=== PATIENT | female | born 1965 | race Hispanic/Latino ===

== ENCOUNTER → 2018-07-08 | Day surgery (SDC) | payer OTHER ==
[~2018-07-08] MED LIST: LIDOCAINE HCL 2% LOCAL INJ 5 ML SDV VIAL INJ ONE; LOSARTAN POTASS25 MG PO; LYRICA25 MG PO; METFORMIN HCL500 MG PO; MIDAZOLAM HCL 2 MG/2 ML VIAL ONE; PROPOFOL IV EMULSION 10 MG/ML 50 ML VIAL ONE
[2018-07-08 09:40] VITALS: BP 144/80
--- NOTE | 2018-07-08 12:43 | NUR ---
SPIRITUAL CARE - Pre-Surgery Assessment: Pt in bed. Pt's at bedside. Pt reported supportive attention from family and friends. Intervention: I provided pastoral presence, hospitality, sympathetic listening, and prayer. I acquainted pt with availability of ceramist while hospitalized. Outcome: Pt expressed appreciation for visit. No need for follow up indicated at this time. [facility] Spiritual [facility] Department O: [phone] Pager: [phone] ([phone] calling from)
--- NOTE | 2018-07-08 13:12 | Operative Report ---
DATE OF PROCEDURE: July 08, 2018 REFERRING PHYSICIAN: Dr. Juno Lombardi PROCEDURES PERFORMED 1. Esophagogastroduodenoscopy with biopsies. 2. Colonoscopy with polypectomy. INDICATIONS FOR EGD: Heartburn/bloating. INDICATIONS FOR COLONOSCOPY: Colorectal cancer screening. MEDICATION: Patient was done under MAC. Please see anesthesiologist's note. PROCEDURE: With the patient in the left lateral decubitus position, the flexible fiberoptic Olympus gastroscope was introduced into the esophagus under direct visualization without any difficulty. There was some minimal nodularity noted at the GE junction, and that was biopsied. The scope was then advanced with ease into the stomach traversing a small sliding hiatal hernia. Mucosa overlying the antrum and the body revealed some patchy erythema and low-grade to moderate edema, and biopsies were obtained and sent to stain for H. pylori. The pylorus was of normal contour and shape. It was intubated with ease, and the scope was advanced all the way to the 2nd portion of the duodenum. Biopsies were obtained from the proximal 2nd portion to rule out sprue as well as from the duodenal bulb. The scope was then withdrawn back into the stomach and retroflexed. Mucosa overlying the fundus and cardia appeared to be within normal limits. The scope was then straightened out. The stomach was decompressed. Scope was subsequently withdrawn. Patient tolerated the procedure well. IMPRESSION 1. Distal esophagitis. 2. Focal minimal nodularity, gastroesophageal junction, biopsied. 3. Small sliding hiatal hernia. 4. Gastritis, biopsied. Biopsies sent to stain for H. pylori. 5. Rule out sprue. PLAN: Follow up histology. Initiate Protonix 40 mg 1 p.o. q.a.m. a.c. The patient was then turned around. After adequate lubrication of the anal canal, a flexible fiberoptic Olympus colonoscope was inserted into the rectum with ease and advanced all the way to the cecum. It was then withdrawn slowly. Mucosa overlying the cecum and ascending colon appeared to be within normal limits. Four minute polyps were hot biopsied from the transverse colon. The descending appeared to be within normal limits. Some diverticular disease was noted to involve the sigmoid colon. The rectum appeared to be within normal limits. The scope was then retroflexed into the distal rectum, and small internal hemorrhoids were noted, none of which was actively bleeding. The scope was then straightened out. It was subsequently withdrawn. Patient tolerated the procedure well. IMPRESSION 1. Transverse colon polyps x4, hot biopsied. 2. Diverticulosis. 3. Internal hemorrhoids, none actively bleeding. PLAN: Follow up histology. Initiate high-fiber, low-fat diet. Initiate high-fiber supplement. Patient might benefit from a followup colonoscopy in 3 years. Job#: [id number] cc:JUNO LOMBARDI MD
== END | disposition home or self-care (01) ==
LOC: OR 06:02
PROVIDERS: ATTEND Internal Medicine Gastroenterology
DX: Z12.11 Encounter for screening for malignant neoplasm of colon (principal); D12.3 Benign neoplasm of transverse colon; K29.70 Gastritis, unspecified, without bleeding; K20.9 Esophagitis, unspecified; K22.8 Other specified diseases of esophagus; K44.9 Diaphragmatic hernia without obstruction or gangrene; K57.30 Diverticulosis of large intestine without perforation or abscess without bleeding; K64.8 Other hemorrhoids; I44.4 Left anterior fascicular block; E11.9 Type 2 diabetes mellitus without complications; Z79.84 Long term (current) use of oral hypoglycemic drugs; Z68.35 Body mass index [BMI] 35.0-35.9, adult
CPT/HCPCS: 36415; 43239; 45384; 82948; J2001; J2250; 45378

== ENCOUNTER 2019-02-06 15:23 | Emergency (ER) | payer OTHER ==
[~2019-02-06] VITALS: Ht 165.1 cm; Wt 95.3 kg
[~2019-02-06 15:23] MED LIST changes: -LIDOCAINE HCL 2% LOCAL INJ 5 ML SDV VIAL INJ ONE; -MIDAZOLAM HCL 2 MG/2 ML VIAL ONE; -PROPOFOL IV EMULSION 10 MG/ML 50 ML VIAL ONE
--- OUTSIDE RECORDS SUMMARY | 2019-02-06 15:26 | XMS REPORT | Summary of Care ---
Author Author [facility] Organization [facility] Address Unknown Phone Unavailable Encounter LATONIA Adames(SUZY) [id number] Date(s): 07/12/15 - 07/14/15 [facility] [address] [place] [address]- Discharge Disposition: Home Attending Physician: Chapincito Kovacs DO Admitting Physician: Chapincito Kovacs DO Vital Signs 1 2 3 Most recent to oldest [Reference Range]: 167.64 cm (07/12/15 7:43 PM) 165.1 cm (07/12/15 2:52 PM) 165.1 cm (07/12/15 8:06 AM) Height 98.4 DegF (07/14/15 7:49 AM) 97 DegF (07/14/15 4:00 AM) 98.7 DegF (07/14/15 12:47 AM) Temperature Oral [96.4-99.1 DegF] 103/65 mmHg (07/14/15 7:49 AM) 106/68 mmHg (07/14/15 4:00 AM) 116/71 mmHg (07/14/15 12:47 AM) Blood Pressure [90-140/60-90 mmHg] 16 BRMIN (07/14/15 7:49 AM) 16 BRMIN (07/14/15 4:00 AM) 16 BRMIN (07/14/15 12:47 AM) Respiratory Rate [14-20 BRMIN] 65 bpm (07/14/15 7:49 AM) 67 bpm (07/14/15 4:00 AM) 71 bpm (07/14/15 12:47 AM) Peripheral Pulse Rate [60-100 bpm] 93.438 kg (07/13/15 9:23 AM) 88.636 kg (07/12/15 7:43 PM) 88.636 kg (07/12/15 2:52 PM) Weight 31.54 m2 (07/12/15 7:43 PM) 32.52 m2 (07/12/15 2:52 PM) 32.52 m2 (07/12/15 8:06 AM) Body Mass Index Problem List Condition Effective Dates Status Health Status Informant High blood Active sugar(Confirmed) Hypomagnesemia(Confi Resolved rmed) Pneumonia(Confirmed) Resolved Allergies, Adverse Reactions, Alerts Substance Reaction Severity Status NKDA Active Medications acetaminophen (ANES) Route: IV, Drug form: INJ, ONCE, Stop date: 07/13/15 13:02:00 Start Date: 07/13/15 Stop Date: 07/13/15 Status: Completed acetaminophen-hydrocodone 325 mg-5 mg oral tablet 1 tab, Route: PO, Drug Form: TAB, Dosing Weight 93.438, kg, Q4H, PRN Pain Score 1-3, Start date: 07/13/15 13:25:00, Duration: 30 day, Stop date: 08/12/15 13:24: 00 Notes: (Same as: [place] 325/5) Do not exceed 4gm/day of acetaminophen. Start Date: 07/13/15 Stop Date: 07/14/15 Status: Discontinued cefOXitin (ANES) Route: IV, Drug form: INJ, ONCE, Stop date: 07/13/15 12:57:00 Start Date: 07/13/15 Stop Date: 07/13/15 Status: Completed cloNIDine 0.1 mg oral tablet 0.1 mg, 1 tab, Route: PO, Drug form: TAB, Q8H, Dosing Weight 88.636, kg, PRN Hyp ertension, Start date: 07/12/15 14:34:00, Duration: 30 day, Stop date: 08/11/15 14:33:00, SBP >160 Notes: (Same As: Catapres) Start Date: 07/12/15 Stop Date: 07/14/15 Status: Discontinued Dextrose 50% Syringe 25 gm, 50 mL, Route: IVP, Drug Form: INJ, Dosing Weight 88.636, kg, PRN, PRN Blo od Glucose Results, Start date: 07/12/15 14:35:00, Duration: 30 day, Stop date: 08/11/15 14:34:00 Start Date: 07/12/15 Stop Date: 07/14/15 Status: Discontinued Dextrose 50% Syringe 12.5 gm, 25 mL, Route: IVP, Drug Form: INJ, Dosing Weight 88.636, kg, PRN, PRN B lood Glucose Results, Start date: 07/12/15 14:35:00, Duration: 30 day, Stop date : 08/11/15 14:34:00 Start Date: 07/12/15 Stop Date: 07/14/15 Status: Discontinued Dilaudid 0.5 mg, 0.5 mL, Route: IVP, Drug form: INJ, ONCE, Dosing Weight 88.636, kg, Prio rity: STAT, Start date: 07/12/15 10:12:00, Stop date: 07/12/15 10:12:00 Start Date: 07/12/15 Stop Date: 07/12/15 Status: Completed docusate sodium 100 mg oral capsule 100 mg, 1 cap, Route: PO, Drug form: CAP, BID, Dosing Weight 93.438, kg, Start d ate: 07/13/15 17:00:00, Duration: 30 day, Stop date: 08/12/15 9:00:00 Notes: (Same as: Colace) (Do Not Crush) Start Date: 07/13/15 Stop Date: 07/14/15 Status: Discontinued enoxaparin 40 mg, 0.4 mL, Route: SUB-Q, Drug form: INJ, [id number], Dosing Weight 88.636, kg, Start date: 07/12/15 15:00:00, Duration: 30 day, Stop date: 08/10/15 15:00:00 Notes: (Same as: Lovenox) Start Date: 07/12/15 Stop Date: 07/14/15 Status: Discontinued fentaNYL 25 microgram, Route: IVP, ONCE, Dosing Weight 93.438, kg, Start date: 07/13/15 1 3:55:00, Stop date: 07/13/15 13:55:00 Start Date: 07/13/15 Stop Date: 07/13/15 Status: Completed fentaNYL 25 microgram, 0.5 mL, Route: IVP, Drug form: INJ, ONCE, Dosing Weight 93.438, kg , Start date: 07/13/15 13:40:00, Stop date: 07/13/15 13:40:00 Notes: (Same as: Sublimaze) Preservative free. Start Date: 07/13/15 Stop Date: 07/13/15 Status: Completed fentaNYL (ANES) Route: IV, Drug form: INJ, ONCE, Stop date: 07/13/15 12:57:00 Start Date: 07/13/15 Stop Date: 07/13/15 Status: Completed GI cocktail 30 mL, Route: PO, Dosing Weight 88.636, kg, ONCE, STAT, Start date: 07/12/15 9:3 4:00, Stop date: 07/12/15 9:34:00 Start Date: 07/12/15 Stop Date: 07/12/15 Status: Completed glipiZIDE 10 mg oral tablet 10 mg=1 tab, PO, Before Breakfast, # 30 tab, 0 Refill(s) Start Date: 07/12/15 Status: Ordered glucagon 1 mg, Route: IM, Drug form: PDR/INJ, PRN, Dosing Weight 88.636, kg, PRN Blood Gl ucose Results, Start date: 07/12/15 14:35:00, Duration: 30 day, Stop date: 08/10 14:34:00 Start Date: 07/12/15 Stop Date: 07/14/15 Status: Discontinued glycopyrrolate (ANES) Route: IV, Drug form: INJ, ONCE, Stop date: 07/13/15 13:14:00 Start Date: 07/13/15 Stop Date: 07/13/15 Status: Completed hydromorphone 1 mg, 1 mL, Route: IVP, Drug form: INJ, ONCE, Dosing Weight 88.636, kg, Priority : STAT, Start date: 07/12/15 8:23:00, Stop date: 07/12/15 8:23:00 Start Date: 07/12/15 Stop Date: 07/12/15 Status: Completed influenza virus vaccine, inactivated 0.5 mL, Route: IM, Daily, Start date: 07/13/15 9:00:00, Duration: 1 doses or meron es, Stop date: 07/13/15 9:00:00 Start Date: 07/13/15 Stop Date: 07/13/15 Status: Deleted insulin aspart 2 unit, 0.02 mL, Route: SUB-Q, Drug form: SOLN, Bedtime, Dosing Weight 88.636, k g, PRN Blood Glucose Results, Start date: 07/12/15 14:35:00, Duration: 30 day, S top date: 08/11/15 14:34:00 Notes: Roll in palms of hands gently; Do not shake vigorously. (Same as: Daysi Toney)"single patient use only"WASTE: F/P - Black; E - Municipal Trash Bin Stable f or 28 days at room temperature.Expires in days from Date Start Date: 07/12/15 Stop Date: 07/14/15 Status: Discontinued insulin aspart 3 unit, 0.03 mL, Route: SUB-Q, Drug form: SOLN, Bedtime, Dosing Weight 88.636, k g, PRN Blood Glucose Results, Start date: 07/12/15 14:35:00, Duration: 30 day, S top date: 08/11/15 14:34:00 Notes: Roll in palms of hands gently; Do not shake vigorously. (Same as: Daysi Toney)"single patient use only"WASTE: F/P - Black; E - Municipal Trash Bin Stable f or 28 days at room temperature.Expires in days from Date Start Date: 07/12/15 Stop Date: 07/14/15 Status: Discontinued insulin aspart 4 unit, 0.04 mL, Route: SUB-Q, Drug form: SOLN, Bedtime, Dosing Weight 88.636, k g, PRN Blood Glucose Results, Start date: 07/12/15 14:35:00, Duration: 30 day, S top date: 08/11/15 14:34:00 Notes: Roll in palms of hands gently; Do not shake vigorously. (Same as: Daysi Toney)"single patient use only"WASTE: F/P - Black; E - Municipal Trash Bin Stable f or 28 days at room temperature.Expires in days from Date Start Date: 07/12/15 Stop Date: 07/14/15 Status: Discontinued insulin aspart 1 unit, 0.01 mL, Route: SUB-Q, Drug form: SOLN, Bedtime, Dosing Weight 88.636, k g, PRN Blood Glucose Results, Start date: 07/12/15 14:35:00, Duration: 30 day, S top date: 08/11/15 14:34:00 Notes: Roll in palms of hands gently; Do not shake vigorously. (Same as: Daysi Toney)"single patient use only"WASTE: F/P - Black; E - Municipal Trash Bin Stable f or 28 days at room temperature.Expires in days from Date Start Date: 07/12/15 Stop Date: 07/14/15 Status: Discontinued insulin aspart 6 unit, 0.06 mL, Route: SUB-Q, Drug form: SOLN, TID-Before Meals, Dosing Weight 88.636, kg, PRN Blood Glucose Results, Start date: 07/12/15 14:35:00, Duration: 30 day, Stop date: 08/11/15 14:34:00 Notes: Roll in palms of hands gently; Do not shake vigorously. (Same as: Daysi Toney)"single patient use only"WASTE: F/P - Black; E - Municipal Trash Bin Stable f or 28 days at room temperature.Expires in days from Date Start Date: 07/12/15 Stop Date: 07/14/15 Status: Discontinued insulin aspart 4 unit, 0.04 mL, Route: SUB-Q, Drug form: SOLN, TID-Before Meals, Dosing Weight 88.636, kg, PRN Blood Glucose Results, Start date: 07/12/15 14:35:00, Duration: 30 day, Stop date: 08/11/15 14:34:00 Notes: Roll in palms of hands gently; Do not shake vigorously. (Same as: Daysi Toney)"single patient use only"WASTE: F/P - Black; E - Municipal Trash Bin Stable f or 28 days at room temperature.Expires in days from Date Start Date: 07/12/15 Stop Date: 07/14/15 Status: Discontinued insulin aspart 10 unit, 0.1 mL, Route: SUB-Q, Drug form: SOLN, TID-Before Meals, Dosing Weight 88.636, kg, PRN Blood Glucose Results, Start date: 07/12/15 14:35:00, Duration: 30 day, Stop date: 08/11/15 14:34:00 Notes: Roll in palms of hands gently; Do not shake vigorously. (Same as: Daysi Toney)"single patient use only"WASTE: F/P - Black; E - Municipal Trash Bin Stable f or 28 days at room temperature.Expires in days from Date Start Date: 07/12/15 Stop Date: 07/14/15 Status: Discontinued insulin aspart 8 unit, 0.08 mL, Route: SUB-Q, Drug form: SOLN, TID-Before Meals, Dosing Weight 88.636, kg, PRN Blood Glucose Results, Start date: 07/12/15 14:35:00, Duration: 30 day, Stop date: 08/11/15 14:34:00 Notes: Roll in palms of hands gently; Do not shake vigorously. (Same as: Daysi Toney)"single patient use only"WASTE: F/P - Black; E - Municipal Trash Bin Stable f or 28 days at room temperature.Expires in days from Date Start Date: 07/12/15 Stop Date: 07/14/15 Status: Discontinued insulin aspart 2 unit, 0.02 mL, Route: SUB-Q, Drug form: SOLN, TID-Before Meals, Dosing Weight 88.636, kg, PRN Blood Glucose Results, Start date: 07/12/15 14:35:00, Duration: 30 day, Stop date: 08/11/15 14:34:00 Notes: Roll in palms of hands gently; Do not shake vigorously. (Same as: Daysi Toney)"single patient use only"WASTE: F/P - Black; E - Municipal Trash Bin Stable f or 28 days at room temperature.Expires in days from Date Start Date: 07/12/15 Stop Date: 07/14/15 Status: Discontinued Insulin regular 2 unit, 0.02 mL, Route: IV, Drug form: INJ, ONCE, Dosing Weight 93.438, kg, Star t date: 07/13/15 10:59:00, Stop date: 07/13/15 10:59:00 Notes: (Same as: Humulin R and NovoLIN R)WASTE: F/P - Black; E - Municipal Trash Bin (Do not shake) Start Date: 07/13/15 Stop Date: 07/13/15 Status: Completed Insulin regular 3 unit, Route: SUB-Q, ONCE, Dosing Weight 93.438, kg, Start date: 07/13/15 13:50 :00, Stop date: 07/13/15 13:50:00 Start Date: 07/13/15 Stop Date: 07/13/15 Status: Discontinued Insulin regular 3 unit, Route: IV, ONCE, Dosing Weight 93.438, kg, Start date: 07/13/15 13:51:00 , Stop date: 07/13/15 13:51:00 Start Date: 07/13/15 Stop Date: 07/13/15 Status: Completed Insulin regular 10 unit, Route: IVP, ONCE, Dosing Weight 88.636, kg, Priority: STAT, Start date: 07/12/15 11:44:00, Stop date: 07/12/15 11:44:00 Start Date: 07/12/15 Stop Date: 07/12/15 Status: Completed Lactated Ringers IV 1,000 mL 1,000 mL, Rate: 125 ml/hr, Infuse over: 8 hr, Route: IV, Dosing Weight 88.636 kg , Total Volume: 1,000, Start date: 07/12/15 14:55:00, Duration: 30 day, Stop maira e: 08/11/15 14:54:00 Start Date: 07/12/15 Stop Date: 07/13/15 Status: Discontinued Lactated Ringers IV 1,000 mL 1,000 mL, Rate: 40 ml/hr, Infuse over: 25 hr, Route: IV, Dosing Weight 93.438 kg , Total Volume: 1,000, Start date: 07/13/15 12:47:00, Duration: 1 day, Stop date : 07/14/15 12:46:00 Start Date: 07/13/15 Stop Date: 07/14/15 Status: Discontinued lidocaine (ANES) Route: IV, Drug form: INJ, ONCE, Stop date: 07/13/15 12:57:00 Start Date: 07/13/15 Stop Date: 07/13/15 Status: Completed midazolam (ANES) Route: IV, Drug form: SOLN, ONCE, Stop date: 07/13/15 12:52:00 Start Date: 07/13/15 Stop Date: 07/13/15 Status: Completed morphine Sulfate 2 mg, 1 mL, Route: IVP, Drug form: INJ, Q2H, Dosing Weight 88.636, kg, PRN Pain Score 6-10, Priority: Routine, Start date: 07/12/15 20:08:00, Duration: 30 day, Stop date: 08/11/15 20:07:00 Notes: (Same as:MORPhine Sulfate) Start Date: 07/12/15 Stop Date: 07/13/15 Status: Discontinued morphine Sulfate 2 mg, 1 mL, Route: IVP, Drug form: INJ, Q3H, Dosing Weight 93.438, kg, PRN Pain Score 4-6, Start date: 07/13/15 13:25:00, Duration: 30 day, Stop date: 08/12/15 13:24:00 Notes: (Same as:MORPhine Sulfate) Start Date: 07/13/15 Stop Date: 07/14/15 Status: Discontinued morphine Sulfate 2 mg, Route: IVP, Q4H, Dosing Weight 88.636, kg, PRN Pain Score 7-10, Start date : 07/12/15 14:55:00, Duration: 30 day, Stop date: 08/11/15 14:54:00 Start Date: 07/12/15 Stop Date: 07/12/15 Status: Deleted morphine Sulfate 2 mg, 1 mL, Route: IVP, Drug form: INJ, Q4H, Dosing Weight 88.636, kg, PRN as ne eded for chest pain, Priority: Routine, Start date: 07/12/15 14:53:00, Duration: 30 day, Stop date: 08/11/15 14:52:00 Notes: (Same as:MORPhine Sulfate) Start Date: 07/12/15 Stop Date: 07/12/15 Status: Discontinued neostigmine (ANES) Route: IV, Drug form: INJ, ONCE, Stop date: 07/13/15 13:14:00 Start Date: 07/13/15 Stop Date: 07/13/15 Status: Completed NS 1,000 mL 1,000 mL, Rate: 100 ml/hr, Infuse over: 10 hr, Route: IV, Dosing Weight 88.636 k g, Total Volume: 1,000, Start date: 07/12/15 14:34:00, Duration: 30 day, Stop da te: 08/11/15 14:33:00 Start Date: 07/12/15 Stop Date: 07/13/15 Status: Discontinued Ofirmev 1,000 mg, 100 mL, Route: IV, Drug form: INJ, Q6H, Dosing Weight 93.438, kg, for > or=50 kg, Start date: 07/13/15 18:00:00, Duration: 1 day, Stop date: 07/14/15 12:00:00 Notes: Infuse over 15 minutesDo not exceed 4gm/day of acetaminophen MEDICAT ION WASTE Product Size: 1000 mgProduct Wasted: ___ mg Start Date: 07/13/15 Stop Date: 07/14/15 Status: Discontinued ondansetron 4 mg, 2 mL, Route: IVP, Drug form: INJ, Q6H, Dosing Weight 93.438, kg, PRN Nause a & Vomiting, Start date: 07/13/15 13:25:00, Duration: 30 day, Stop date: 08/12/15 13:24:00 Notes: (Same as: Zofran) MEDICATION WASTE Product Size: 4 mgProduct Was dedrick: ___ mg Start Date: 07/13/15 Stop Date: 07/14/15 Status: Discontinued ondansetron 4 mg, 2 mL, Route: IVP, Drug form: INJ, Q6H, Dosing Weight 88.636, kg, PRN Nause a & Vomiting, Start date: 07/12/15 14:55:00, Duration: 30 day, Stop date: 08/11/15 14:54:00 Notes: (Same as: Zofran) MEDICATION WASTE Product Size: 4 mgProduct Was dedrick: ___ mg Start Date: 07/12/15 Stop Date: 07/13/15 Status: Discontinued ondansetron 4 mg, 2 mL, Route: IVP, Drug form: INJ, ONCE, Dosing Weight 88.636, kg, Priority : STAT, Start date: 07/12/15 8:23:00, Stop date: 07/12/15 8:23:00 Notes: (Same as: Zofran) MEDICATION WASTE Product Size: 4 mgProduct Was dedrick: ___ mg Start Date: 07/12/15 Stop Date: 07/12/15 Status: Completed ondansetron (ANES) Route: IV, Drug form: INJ, ONCE, Stop date: 07/13/15 13:02:00 Start Date: 07/13/15 Stop Date: 07/13/15 Status: Completed pneumococcal 23-valent vaccine 0.5 mL, Route: IM, Drug Form: INJ, Daily, Start date: 07/13/15 9:00:00, Duration : 1 doses or times, Stop date: 07/13/15 9:00:00 Notes: (Same as: Pneumovax 23) Refrigerate Start Date: 07/13/15 Stop Date: 07/13/15 Status: Completed propofol (ANES) Route: IV, Drug form: INJ, ONCE, Stop date: 07/13/15 12:57:00 Start Date: 07/13/15 Stop Date: 07/13/15 Status: Completed Reglan 5 mg oral tablet 5 mg, 1 tab, Route: PO, Drug form: TAB, QID-Before Meals, Dosing Weight 88.636, kg, Start date: 07/12/15 16:30:00, Duration: 30 day, Stop date: 08/11/15 11:30:0 0 Notes: (Same as: Reglan) Take 30 min before meals Start Date: 07/12/15 Stop Date: 07/14/15 Status: Discontinued rocuronium (ANES) Route: IV, Drug form: INJ, ONCE, Stop date: 07/13/15 12:57:00 Start Date: 07/13/15 Stop Date: 07/13/15 Status: Completed Saline Flush 0.9% 10 ml, Route: IVP, Drug Form: INJ, Dosing Weight 93.438, kg, PRN, PRN Line Flush , Start date: 07/13/15 13:25:00, Duration: 30 day, Stop date: 08/12/15 13:24:00 Notes: (Same as: BD Posiflush) Start Date: 07/13/15 Stop Date: 07/14/15 Status: Discontinued Saline Flush 0.9% 10 ml, Route: IVP, Drug Form: INJ, Dosing Weight 88.636, kg, PRN, PRN Line Flush , Start date: 07/12/15 14:55:00, Duration: 30 day, Stop date: 08/11/15 14:54:00 Notes: (Same as: BD Posiflush) Start Date: 07/12/15 Stop Date: 07/14/15 Status: Discontinued Saline Flush 0.9% 10 mL, Route: IVP, Drug Form: INJ, Dosing Weight 88.636, kg, PRN, PRN Line Flush , Start date: 07/12/15 8:23:00, Duration: 30 day, Stop date: 08/11/15 8:22:00 Notes: (Same as: BD Posiflush) Start Date: 07/12/15 Stop Date: 07/13/15 Status: Discontinued Sodium Chloride 0.9% (Bolus) IV 1,000 mL, 1000 ml/hr, Infuse Over: 1 hr, Route: IV, 1,000, Drug form: INJ, ONCE, Priority: STAT, Dosing Weight 88.636 kg, Start date: 07/12/15 8:23:00, Duration: 1 doses or times, Stop date: 07/12/15 8:23:00 Start Date: 07/12/15 Stop Date: 07/12/15 Status: Completed Sodium Chloride 0.9% IV 1,000 mL 1,000 mL, Rate: 125 ml/hr, Infuse over: 8 hr, Route: IV, Dosing Weight 93.438 kg , Total Volume: 1,000, Start date: 07/13/15 13:25:00, Duration: 30 day, Stop maira e: 08/12/15 13:24:00 Start Date: 07/13/15 Stop Date: 07/14/15 Status: Discontinued Tylenol with Codeine #3 oral tablet 1 tab, PO, Q6H, PRN Pain, X 3 day, # 12 tab, 0 Refill(s) Start Date: 07/14/15 Stop Date: 07/17/15 Status: Ordered Zofran 4 mg, 2 mL, Route: IVP, Drug form: INJ, Q8H, Dosing Weight 88.636, kg, PRN as ne eded for nausea/vomiting, Priority: STAT, Start date: 07/12/15 14:34:00, Duratio n: 30 day, Stop date: 08/11/15 14:33:00 Notes: (Same as: Zofran) MEDICATION WASTE Product Size: 4 mgProduct Was dedrick: ___ mg Start Date: 07/12/15 Stop Date: 07/13/15 Status: Discontinued Zofran 4 mg, 2 mL, Route: IV, Drug form: INJ, ONCE, Dosing Weight 93.438, kg, Start maira e: 07/13/15 13:40:00, Stop date: 07/13/15 13:40:00 Notes: (Same as: Zofran) MEDICATION WASTE Product Size: 4 mgProduct Was dedrick: ___ mg Start Date: 07/13/15 Stop Date: 07/13/15 Status: Completed Results ELECTROLYTES Most recent to 1 2 oldest [Reference Range]: Sodium Lvl [135-145 135 mEq/L 130 mEq/L mEq/L] (07/13/15 7:55 AM) *LOW* (07/12/15 8:39 AM) Potassium Lvl 3.6 mEq/L 4.2 mEq/L [3.5-5.1 mEq/L] (07/13/15 7:55 AM) (07/12/15 8:39 AM) Chloride Lvl [95-109 103 mEq/L 97 mEq/L mEq/L] (07/13/15 7:55 AM) (07/12/15 8:39 AM) CO2 [24-32 mEq/L] 24 mEq/L 18 mEq/L (07/13/15 7:55 AM) *LOW* (07/12/15 8:39 AM) AGAP [10.0-20.0 11.6 mEq/L 19.2 mEq/L mEq/L] (07/13/15 7:55 AM) (07/12/15 8:39 AM) CHEM PANEL Most recent to 1 2 oldest [Reference Range]: Creatinine Lvl 0.53 mg/dL 0.90 mg/dL [0.50-1.40 mg/dL] (07/13/15 7:55 AM) (07/12/15 8:39 AM) eGFR 112 mL/min/1.73m2 1 76 mL/min/1.73m2 2 *NA* *NA* (07/13/15 7:55 AM) (07/12/15 8:39 AM) BUN [7-22 mg/dL] 9 mg/dL 12 mg/dL (07/13/15 7:55 AM) (07/12/15 8:39 AM) B/C Ratio [6-25] 13 (07/12/15 8:39 AM) Glucose Lvl [70-99 261 mg/dL 371 mg/dL mg/dL] *HI* *HI* (07/13/15 7:55 AM) (07/12/15 8:39 AM) Total Protein 8.1 g/dL [6.4-8.4 g/dL] (07/12/15 8:39 AM) Albumin Lvl [3.5-5.0 3.6 g/dL g/dL] (07/12/15 8:39 AM) Globulin [2.0-4.0 4.5 g/dL g/dL] *HI* (07/12/15 8:39 AM) A/G Ratio [0.7-1.6] 0.8 (07/12/15 8:39 AM) Calcium Lvl 8.4 mg/dL 9.1 mg/dL [8.5-10.5 mg/dL] *LOW* (07/12/15 8:39 AM) (07/13/15 7:55 AM) ALT [0-65 unit/L] 28 unit/L (07/12/15 8:39 AM) AST [0-37 unit/L] 54 unit/L *HI* (07/12/15 8:39 AM) Alk Phos [39-136 142 unit/L unit/L] *HI* (07/12/15 8:39 AM) Bili Total [0.2-1.3 1.0 mg/dL mg/dL] (07/12/15 8:39 AM) Lipase Lvl [73-393 120 unit/L unit/L] (07/12/15 8:39 AM) 1Result Comment: The eGFR is calculated using the CKD-EPI formula. In most young, healthy individuals the eGFR will be >90 mL/min/1.73m2. The eGFR declines with age. An eGFR of 60-89 may be normal in some populations, particularly the elderly, for whom the CKD-EPI formula has not been extensively validated. Use of the eGFR is not recommended in the following populations: Individuals with unstable creatinine concentrations, including patients and those with serious co-morbid conditions. Patients with extremes in muscle mass or diet. The data above are obtained from the National Kidney Disease Education Program ( NKDEP) which additionally recommends that when the eGFR is used in patients with extremes of body mass index for purposes of drug dosing, the eGFR should be mul tiplied by the estimated BMI. 2Result Comment: The eGFR is calculated using the CKD-EPI formula. In most young, healthy individuals the eGFR will be >90 mL/min/1.73m2. The eGFR declines with age. An eGFR of 60-89 may be normal in some populations, particularly the elderly, for whom the CKD-EPI formula has not been extensively validated. Use of the eGFR is not recommended in the following populations: Individuals with unstable creatinine concentrations, including patients and those with serious co-morbid conditions. Patients with extremes in muscle mass or diet. The data above are obtained from the National Kidney Disease Education Program ( NKDEP) which additionally recommends that when the eGFR is used in patients with extremes of body mass index for purposes of drug dosing, the eGFR should be mul tiplied by the estimated BMI. CARDIAC ENZYMES Most recent to 1 2 oldest [Reference Range]: Troponin-I <0.02 ng/mL [0.00-0.40 ng/mL] (07/12/15 8:39 AM) SPECIAL CHEMISTRY Most recent to 1 2 oldest [Reference Range]: Hgb A1C [<=5.6 %] 10.5 % *HI* (07/13/15 7:55 AM) DRUG SCREEN Most recent to 1 2 oldest [Reference Range]: U Amph Scr Negative [Negative] *NA* (07/12/15 8:39 AM) U Miracle Scr Negative [Negative] *NA* (07/12/15 8:39 AM) U Benzodia Scr Negative [Negative] *NA* (07/12/15 8:39 AM) U Cocaine Scr Positive [Negative] *ABN* (07/12/15 8:39 AM) U Opiate Scr Positive [Negative] *ABN* (07/12/15 8:39 AM) U Phencyc Scr Negative [Negative] *NA* (07/12/15 8:39 AM) U Cannab Scr Negative [Negative] *NA* (07/12/15 8:39 AM) UDS Note See Note (07/12/15 8:39 AM) URINE AND STOOL Most recent to 1 2 oldest [Reference Range]: UA Turbidity [Clear] Clear (07/12/15 8:39 AM) UA Color Ltyellow *NA* (07/12/15 8:39 AM) UA pH [5.0-8.0] 6.0 (07/12/15 8:39 AM) UA Spec Grav 1.030 [<=1.030] (07/12/15 8:39 AM) UA Glucose [Negative 500 mg/dL mg/dL] *ABN* (07/12/15 8:39 AM) UA Blood [Negative] Small *ABN* (07/12/15 8:39 AM) UA Ketones [Negative 80 mg/dL mg/dL] *ABN* (07/12/15 8:39 AM) UA Protein [Negative Negative mg/dL mg/dL] (07/12/15 8:39 AM) UA Urobilinogen <=1.0 mg/dL [0.1-1.0 mg/dL] *NA* (07/12/15 8:39 AM) UA Bili [Negative] Negative *NA* (07/12/15 8:39 AM) UA Leuk Est Small [Negative] *ABN* (07/12/15 8:39 AM) UA Nitrite Negative [Negative] (07/12/15 8:39 AM) UA WBC [0-5 /HPF] 45 /HPF *HI* (07/12/15 8:39 AM) UA RBC [0-2 /HPF] 2 /HPF (07/12/15 8:39 AM) UA Bacteria [None Occasional /HPF Seen /HPF] *NA* (07/12/15 8:39 AM) UA Sq Epi [Few /LPF] Few /LPF *NA* (07/12/15 8:39 AM) HEMATOLOGY Most recent to 1 2 oldest [Reference Range]: WBC [3.7-10.4 K/CMM] 7.7 K/CMM 11.7 K/CMM (07/13/15 7:55 AM) *HI* (07/12/15 8:39 AM) RBC [4.20-5.40 4.28 M/CMM 5.25 M/CMM M/CMM] (07/13/15 7:55 AM) (07/12/15 8:39 AM) Hgb [12.0-16.0 g/dL] 13.0 g/dL 15.9 g/dL (07/13/15 7:55 AM) (07/12/15 8:39 AM) Hct [36.0-48.0 %] 39.6 % 48.5 % (07/13/15 7:55 AM) *HI* (07/12/15 8:39 AM) MCV [80.0-98.0 fL] 92.6 fL 92.5 fL (07/13/15 7:55 AM) (07/12/15 8:39 AM) MCH [27.0-31.0 pg] 30.3 pg 30.4 pg (07/13/15 7:55 AM) (07/12/15 8:39 AM) MCHC [32.0-36.0 32.7 g/dL 32.9 g/dL g/dL] (07/13/15 7:55 AM) (07/12/15 8:39 AM) RDW [11.5-14.5 %] 12.8 % 12.8 % (07/13/15 7:55 AM) (07/12/15 8:39 AM) Platelet [133-450 173 K/CMM 221 K/CMM K/CMM] (07/13/15 7:55 AM) (07/12/15 8:39 AM) MPV [7.4-10.4 fL] 10.2 fL 10.6 fL (07/13/15 7:55 AM) *HI* (07/12/15 8:39 AM) Segs [45.0-75.0 %] 60.7 % 74.3 % (07/13/15 7:55 AM) (07/12/15 8:39 AM) Lymphocytes 31.4 % 20.0 % [20.0-40.0 %] (07/13/15 7:55 AM) (07/12/15 8:39 AM) Monocytes [2.0-12.0 6.6 % 4.5 % %] (07/13/15 7:55 AM) (07/12/15 8:39 AM) Eosinophils [0.0-4.0 0.8 % 0.4 % %] (07/13/15 7:55 AM) (07/12/15 8:39 AM) Basophils [0.0-1.0 0.5 % 0.8 % %] (07/13/15 7:55 AM) (07/12/15 8:39 AM) Segs-Bands # 4.7 K/CMM 8.7 K/CMM [1.5-8.1 K/CMM] (07/13/15 7:55 AM) *HI* (07/12/15 8:39 AM) Lymphocytes # 2.4 K/CMM 2.3 K/CMM [1.0-5.5 K/CMM] (07/13/15 7:55 AM) (07/12/15 8:39 AM) Monocytes # [0.0-0.8 0.5 K/CMM 0.5 K/CMM K/CMM] (07/13/15 7:55 AM) (07/12/15 8:39 AM) Eosinophils # 0.1 K/CMM [0.0-0.5 K/CMM] (07/13/15 7:55 AM) Basophils # [0.0-0.2 0.1 K/CMM K/CMM] (07/12/15 8:39 AM) PTT [22.9-35.8 31.2 seconds seconds] (07/13/15 8:11 AM) Immunizations Vaccine Date Refusal Reason influenza virus vaccine, inactivated 07/13/15 Patient Refuses influenza virus vaccine, inactivated 05/14/15 pneumococcal 23-valent vaccine 07/13/15 Procedures Procedure Date Related Diagnosis Body Site Laminectomy Partial hysterectomy Social History Social History Type Response Alcohol Current, Type Wine. Frequency: 1-2 times per month. Previous treatment: None. Smoking Status Never smoker; Exposure to Tobacco Smoke None; Cigarette Smoking Last 365 Days No; Reg Smoking Cessation Counseling No Assessment and Plan Extracted from: Title: Clinical Document Author: Ilya Rivera MD Date: 07/14/15 Surgery Progress Note Attending: [place]ito Kovacs DOPhone: Service: Emergency Medicine Service Code status: Full Code [Ordered] Reason for Admission: AC INTRACTABLE EPIGASTRIC AND RUQ PAIN, CHOLELITHIASIS Working DRG: None Documented Isolation: None Documented Consulting Physicians: Ilya Rivera MDOffice: MSO: [id number]: General Surgery Chapincito Kovacs DOOffice: MSO: [id number]: Medicine SUBJECTIVE: Doing well. Minimal pain described as soreness around the umbilicus. No fevers or chills. Tolerating a diet. OBJECTIVE & EXAM: General: AAOx3 HEENT: AT, NC, PERRLA, no scleral icterus CARDIAC: rrr PULM: CTA B, equal excursion B ABD: soft ND, mild TTP umbilicus, no R/G, no organomegaly EXT: no E/C/C, 2+ pulses in all 4 ext NEURO: grossly intact, CN 2-12 intact ASSESSMENT: A 50-year-old lady with: 1. Cholecystitis with gallstones. 2. Intractable right upper quadrant epigastric abdominal pain. 3. Nausea and vomiting. 4. Obesity, BMI 33. 5. Diabetes. 6. Questionable mild urinary tract infection. PLAN: 1. Diet as tolerated. 2. Ambulate, DVT prophylaxis. 3. OK for DC planning, FU one week. 4. Plan discussed with patient and she understands. Vitals and Temp: VitalsTmp(F)[id number] 07/14 07:[id number]--- 07/14 [id number]--- 07/14 00:[id number]--- 07/13 20:[id number]--- 07/13 18:[id number]--- 24 Hr Tmax: 98.8F (37.11c) at 07/13 11:01Vital Signs are the last 5 in the past 48 hours. Labs (Last four charted values) WBC 7.7(JUL 13)H 11.7(JUL 12) Hgb 13.0(JUL 13)15.9(JUL 12) Hct 39.6(JUL 13)H 48.5(JUL 12) Plt 173(JUL 13)221(JUL 12) Na 135(JUL 13)L 130(JUL 12) K 3.6(JUL 13)4.2(JUL 12) CO2 24(JUL 13)L 18(JUL 12) Cl 103(JUL 13)97(JUL 12) Cr 0.53(JUL 13)0.90(JUL 12) BUN 9(JUL 13)12(JUL 12) Glucose Random H 261(JUL 13)H 371(JUL 12) Ca L 8.4(JUL 13)9.1(JUL 12) PTT 31.2(JUL 13) Troponin <0.02(JUL 12) Scheduled Meds (4): 07/13/15 acetaminophen (Ofirmev) 1,000 mg IV Q6H 400 ml/hr 07/13/15 docusate (docusate sodium 100 mg oral capsule) 100 mg PO BID 07/12/15 enoxaparin 40 mg SUB-Q [id number] 07/12/15 metoclopramide (Reglan 5 mg oral tablet) 5 mg PO QID-Before Meals Extracted from: Title: Clinical Document Author: Ilya Rivera MD Date: 07/13/15 DATE OF PROCEDURE: 07/13/2015. PREOPERATIVE DIAGNOSIS: 1. Symptomatic gallstones. 2. Intractable right upper quadrant epigastric abdominal pain. 3. Nausea and vomiting. 4. Obesity, BMI 33. 5. Diabetes. 6. Questionable mild urinary tract infection. POSTOPERATIVE DIAGNOSIS: 1. Acute cholecystitis with gallstones. 2. Intractable right upper quadrant epigastric abdominal pain. 3. Nausea and vomiting. 4. Obesity, BMI 33. 5. Diabetes. 6. Questionable mild urinary tract infection. TECHNICAL PROCEDURE PERFORMED: Laparoscopic cholecystectomy. SURGEON: Ilya Rivera M.D. ANESTHESIA: General endotracheal. SURGICAL WOUND CLASSIFICATION: Clean contaminate. OPERATIVE TIME: 35 minutes. ESTIMATED BLOOD LOSS: Minimal. FLUID REPLACEMENT: Per anesthesia. SPECIMENS SENT FOR PATHOLOGY: Gallbladder. COMPLICATIONS: None. FINDINGS: 1. Inflamed gallbladder. 2. Well visualized critical view. 3. Gallstones. CONDITION: To recovery, stable. POSTOPERATIVE PLAN: To the floor INDICATIONS: A 50-year-old lady that presented to [facility] with abdominal pain. At this time, the history and physical as well as laboratory studies was consistent with diagnosis of the colic. Therefore, the option of laparoscopic versus open cholecystectomy was offered to the patient. Risks and benefits of the procedure were explained and the patient voiced understanding and consented to procedure. OPERATIVE NARRATIVE: Patient was taken the operating room, placed on the operating table, intubated by anesthesia. The abdomen was prepped and draped in the usual sterile fashion. A timeout was called and the correct patient, as well as procedure was verified. The patient had SCDs on for thromboembolic prophylaxis and received antibiotics within 1 hour of the incision. Umbilical region was identified, 0.5% Marcaine was infused followed 1-cm incision followed by dissection of the fascia. The fascia was grasped with a Aminta clamp and a Veress was place, confirmed with a positive saline drop test. Pneumoperitoneum was achieved with CO2 gas up to 15 mmHg. A 1-cm trocar was placed in the umbilical incision. The patient was placed in reverse Trendelenburg position airplaned to the left; 0.5 cm trocars were introduced in the epigastrium, right upper quadrant right periumbilical regions under direct visualization. The gallbladder was identified. It was grasped at the fundus and retracted to the head, infundibulum was identified, grasped and retracted towards the legs, exposing the triangle of Calot. The cystic duct was identified, it was dissected out from all surrounding structures, clipped proximally 3 times, distally once, transected in between. Of note, a well visualized critical view was identified; therefore we bypassed cholangiogram. The dissection continued to identify the cystic artery, it was dissected out from all surrounding structures, clipped proximally twice, distally once, and transected in between. The gallbladder was then elevated off the liver bed using electrocautery. It was placed in the Endopouch bag and removed from the abdomen through the umbilical port. The liver bed was inspected, all residual bleeding was identified and controlled. The abdomen was irrigated with copious amounts water until clear return was achieved. The patient was placed flat and all residual irrigation was suctioned out. The pneumoperitoneum was decom pressed and the fascia at the umbilical port was closed using 0 Vicryl in a [id number] manner, and the skin was closed using 4-0 Monocryl in running subcuticular manner. The skin and three 5-mm ports were closed using 4-0 Monocryl in simple U-stitch manner. The patient was extubated in the operating room and transferred to recovery in stable condition. All instrument and laparotomy counts were correct.
--- OUTSIDE RECORDS SUMMARY | 2019-02-06 15:26 | XMS REPORT | Summary of Care ---
Author Author [facility] Organization [facility] Address Unknown Phone Unavailable Encounter LATONIA Adames(SUZY) [id number] Date(s): 05/13/15 - 05/15/15 [facility] [id number] [place] [address]- [phone] Discharge Disposition: Home Attending Physician: Yessenia Carvajal MD Admitting Physician: Yessenia Carvajal MD Vital Signs 1 2 3 Most recent to oldest [Reference Range]: 167.64 cm (05/14/15 6:29 AM) 165.1 cm (05/13/15 9:18 PM) Height 98.8 DegF (05/15/15 4:00 AM) 98.3 DegF (05/15/15 12:00 AM) 98.2 DegF (05/14/15 9:00 PM) Temperature Oral [96.4-99.1 DegF] 128/77 mmHg (05/15/15 4:00 AM) 123/73 mmHg (05/15/15 12:00 AM) 115/78 mmHg (05/14/15 9:00 PM) Blood Pressure [90-140/60-90 mmHg] 17 BRMIN (05/15/15 4:00 AM) 15 BRMIN (05/15/15 12:00 AM) 15 BRMIN (05/14/15 9:00 PM) Respiratory Rate [14-20 BRMIN] 78 bpm (05/15/15 4:00 AM) 76 bpm (05/15/15 12:00 AM) 75 bpm (05/14/15 9:00 PM) Peripheral Pulse Rate [60-100 bpm] 93.75 kg (05/14/15 6:29 AM) 91.818 kg (05/13/15 9:18 PM) Weight 33.36 m2 (05/14/15 6:29 AM) 33.68 m2 (05/13/15 9:18 PM) Body Mass Index Problem List Condition Effective Dates Status Health Status Informant High blood Active sugar(Confirmed) Allergies, Adverse Reactions, Alerts Substance Reaction Severity Status NKDA Active Medications acetaminophen 325 mg, 1 tab, Route: PO, Drug form: TAB, Q4H, Dosing Weight 91.818, kg, PRN So n Score 4-6, Start date: 05/14/15 4:39:00, Duration: 30 day, Stop date: 06/13/15 4:38:00 Notes: Do not exceed 4 gm/day. (Same as: Tylenol) Start Date: 05/14/15 Stop Date: 05/15/15 Status: Discontinued acetaminophen 650 mg, 2 tab, Route: PO, Drug form: TAB, Q4H, Dosing Weight 91.818, kg, PRN So n 1-3/Temp > 100.4 F, Start date: 05/14/15 4:39:00, Duration: 30 day, Stop date: 06/13/15 4:38:00 Notes: Do not exceed 4 gm/day. (Same as: Tylenol) Start Date: 05/14/15 Stop Date: 05/15/15 Status: Discontinued azithromycin + Sodium Chloride 0.9% IV 250 mL 500 mg, Route: IVPB, [id number], Dosing Weight 91.818, kg, Priority: STAT, Start da te: 05/14/15 4:39:00, Duration: 30 day, Stop date: 06/12/15 20:00:00 Notes: (Same As: Zithromax IV) Start Date: 05/14/15 Stop Date: 05/15/15 Status: Discontinued Azithromycin 5 Day Dose Pack 250 mg oral tablet See Instructions, Take 2 tablets by mouth the first day then 1 tablet by mouth d ays 2-5., X 5 day, # 6 tab, 0 Refill(s) Start Date: 05/15/15 Stop Date: 05/20/15 Status: Ordered calcium gluconate + Sodium Chloride 0.9% IV 100 mL 2 gm, 20 mL, Route: IVPB, PRN, Dosing Weight 91.818, kg, PRN Abnormal Lab Result , For NON-ICU Patients Only., Start date: 05/14/15 2:20:00, Duration: 30 day, St op date: 06/13/15 2:19:00 Start Date: 05/14/15 Stop Date: 05/15/15 Status: Discontinued calcium gluconate + Sodium Chloride 0.9% IV 120 mL 3 gm, 30 mL, Route: IVPB, PRN, Dosing Weight 91.818, kg, PRN Abnormal Lab Result , For NON-ICU Patients Only., Start date: 05/14/15 2:20:00, Duration: 30 day, St op date: 06/13/15 2:19:00 Start Date: 05/14/15 Stop Date: 05/15/15 Status: Discontinued Dextrose 50% Syringe 12.5 gm, 25 mL, Route: IVP, Drug Form: INJ, Dosing Weight 91.818, kg, PRN, PRN B lood Glucose Results, Start date: 05/13/15 21:23:00, Duration: 30 day, Stop date : 06/12/15 21:22:00 Start Date: 05/13/15 Stop Date: 05/15/15 Status: Discontinued Dextrose 50% Syringe 25 gm, 50 mL, Route: IVP, Drug Form: INJ, Dosing Weight 91.818, kg, PRN, PRN Blo od Glucose Results, Start date: 05/13/15 21:23:00, Duration: 30 day, Stop date: 06/12/15 21:22:00 Start Date: 05/13/15 Stop Date: 05/15/15 Status: Discontinued Dextrose 50% Syringe 12.5 gm, 25 mL, Route: IVP, Drug Form: INJ, Dosing Weight 91.818, kg, PRN, PRN B lood Glucose Results, Start date: 05/14/15 5:57:00, Duration: 30 day, Stop date: 06/13/15 5:56:00 Start Date: 05/14/15 Stop Date: 05/15/15 Status: Discontinued Dextrose 50% Syringe 25 gm, 50 mL, Route: IVP, Drug Form: INJ, Dosing Weight 91.818, kg, PRN, PRN Blo od Glucose Results, Start date: 05/14/15 5:57:00, Duration: 30 day, Stop date: 0 06/13/15 5:56:00 Start Date: 05/14/15 Stop Date: 05/15/15 Status: Discontinued enoxaparin 40 mg, 0.4 mL, Route: SUB-Q, Drug form: INJ, [id number], Dosing Weight 93.75, kg, Start date: 05/14/15 11:00:00, Duration: 30 day, Stop date: 06/12/15 11:00:00 Notes: (Same as: Lovenox) Start Date: 05/14/15 Stop Date: 05/15/15 Status: Discontinued glucagon 1 mg, Route: IM, Drug form: PDR/INJ, PRN, Dosing Weight 91.818, kg, PRN Blood Gl ucose Results, Start date: 05/13/15 21:23:00, Duration: 30 day, Stop date: 06/12 21:22:00 Start Date: 05/13/15 Stop Date: 05/15/15 Status: Discontinued glucagon 1 mg, Route: IM, Drug form: PDR/INJ, PRN, Dosing Weight 91.818, kg, PRN Blood Gl ucose Results, Start date: 05/14/15 5:57:00, Duration: 30 day, Stop date: 5:56:00 Start Date: 05/14/15 Stop Date: 05/15/15 Status: Discontinued influenza virus vaccine, inactivated 0.5 mL, Route: IM, Drug Form: SUSP, Daily, Start date: 05/14/15 9:00:00, Duratio n: 1 doses or times, Stop date: 05/14/15 9:00:00 Notes: (Same as: Fluzone Quadrivalent)For 3 years of age and older (0.5 mL IM)Sh anatoliy well before use Start Date: 05/14/15 Stop Date: 05/14/15 Status: Completed insulin aspart 6 unit, 0.06 mL, Route: SUB-Q, Drug form: SOLN, TID-Before Meals, Dosing Weight 91.818, kg, PRN Blood Glucose Results, Start date: 05/14/15 5:57:00, Duration: 3 0 day, Stop date: 06/13/15 5:56:00 Notes: Roll in palms of hands gently; Do not shake vigorously. (Same as: NovoELIGIO G)"single patient use only" Stable for 28 days at room temperature.Expires in _ ____ days from Date Start Date: 05/14/15 Stop Date: 05/15/15 Status: Discontinued insulin aspart 4 unit, 0.04 mL, Route: SUB-Q, Drug form: SOLN, TID-Before Meals, Dosing Weight 91.818, kg, PRN Blood Glucose Results, Start date: 05/14/15 5:57:00, Duration: 3 0 day, Stop date: 06/13/15 5:56:00 Notes: Roll in palms of hands gently; Do not shake vigorously. (Same as: NovoLO G)"single patient use only" Stable for 28 days at room temperature.Expires in _ ____ days from Date Start Date: 05/14/15 Stop Date: 05/15/15 Status: Discontinued insulin aspart 8 unit, 0.08 mL, Route: SUB-Q, Drug form: SOLN, TID-Before Meals, Dosing Weight 91.818, kg, PRN Blood Glucose Results, Start date: 05/14/15 5:57:00, Duration: 3 0 day, Stop date: 06/13/15 5:56:00 Notes: Roll in palms of hands gently; Do not shake vigorously. (Same as: NovoLO G)"single patient use only" Stable for 28 days at room temperature.Expires in _ ____ days from Date Start Date: 05/14/15 Stop Date: 05/15/15 Status: Discontinued insulin aspart 10 unit, 0.1 mL, Route: SUB-Q, Drug form: SOLN, TID-Before Meals, Dosing Weight 91.818, kg, PRN Blood Glucose Results, Start date: 05/14/15 5:57:00, Duration: 3 0 day, Stop date: 06/13/15 5:56:00 Notes: Roll in palms of hands gently; Do not shake vigorously. (Same as: NovoLO G)"single patient use only" Stable for 28 days at room temperature.Expires in _ ____ days from Date Start Date: 05/14/15 Stop Date: 05/15/15 Status: Discontinued insulin aspart 2 unit, 0.02 mL, Route: SUB-Q, Drug form: SOLN, TID-Before Meals, Dosing Weight 91.818, kg, PRN Blood Glucose Results, Start date: 05/14/15 5:57:00, Duration: 3 0 day, Stop date: 06/13/15 5:56:00 Notes: Roll in palms of hands gently; Do not shake vigorously. (Same as: NovoLO G)"single patient use only" Stable for 28 days at room temperature.Expires in _ ____ days from Date Start Date: 05/14/15 Stop Date: 05/15/15 Status: Discontinued Insulin regular 5 unit, Route: IV, ONCE, Dosing Weight 91.818, kg, Priority: STAT, Start date: 07/14/14 23:22:00, Stop date: 05/13/15 23:22:00 Start Date: 05/13/15 Stop Date: 05/13/15 Status: Completed Insulin regular 5 unit, Route: IV, ONCE, Dosing Weight 91.818, kg, Priority: STAT, Start date: 07/14/14 22:23:00, Stop date: 05/13/15 22:23:00 Start Date: 05/13/15 Stop Date: 05/13/15 Status: Completed Insulin regular 6 unit, 0.06 mL, Route: SUB-Q, Drug form: INJ, ONCE, Dosing Weight 91.818, kg, P riority: STAT, Start date: 05/14/15 5:54:00, Stop date: 05/14/15 5:54:00 Notes: (Same as: Humulin R and NovoLIN R) (Do not shake) Start Date: 05/14/15 Stop Date: 05/14/15 Status: Completed Levemir 15 unit, 0.15 mL, Route: SUB-Q, Drug form: INJ, Bedtime, Dosing Weight 93.75, kg , Start date: 05/14/15 21:00:00, Duration: 30 day, Stop date: 06/12/15 21:00:00 Notes: Same as LevemirDo not hold insulin without contacting prescriber "single patient use only" Start Date: 05/14/15 Stop Date: 05/15/15 Status: Discontinued Levemir FlexPen 100 units/mL subcutaneous solution 20 unit, SUB-Q, Bedtime, # 1 pen(s), 3 Refill(s) Start Date: 05/15/15 Status: Ordered Macrobid 100 mg oral capsule 100 mg=1 cap, PO, BID, X 10 day, # 20 cap, 0 Refill(s) Start Date: 05/15/15 Stop Date: 05/25/15 Status: Ordered magnesium oxide 800 mg, 2 tab, Route: PO, Drug form: TAB, PRN, Dosing Weight 91.818, kg, PRN Abn ormal Lab Result, For NON-ICU Patients Only., Start date: 05/14/15 2:20:00, Dura tion: 30 day, Stop date: 06/13/15 2:19:00 Notes: (Same as: Mag-Ox 400)Magnesium oxide 029og=044mr elemental magnesiumDose= ____mg magnesium oxide (___mg elemental magnesium) Start Date: 05/14/15 Stop Date: 05/15/15 Status: Discontinued magnesium sulfate 1 gm, 100 mL, Route: IVPB, Drug form: INJ, ONCE, Start date: 05/14/15 12:30:00, Stop date: 05/14/15 12:30:00 Start Date: 05/14/15 Stop Date: 05/14/15 Status: Deleted magnesium sulfate 1 gm, 100 mL, Route: IVPB, Drug form: INJ, PRN, Dosing Weight 91.818, kg, PRN Ab normal Lab Result, For NON-ICU Patients Only., Start date: 05/14/15 2:20:00, Sto p date: 06/13/15 2:19:00 Start Date: 05/14/15 Stop Date: 05/14/15 Status: Deleted magnesium sulfate 2 gm, 50 mL, Route: IVPB, Drug form: INJ, PRN, Dosing Weight 91.818, kg, PRN Abn ormal Lab Result, For NON-ICU Patients Only., Start date: 05/14/15 2:20:00, Dura tion: 30 day, Stop date: 06/13/15 2:19:00 Start Date: 05/14/15 Stop Date: 05/15/15 Status: Discontinued magnesium sulfate 2 gm in Water 50 ml 2 gm, 50 mL, Route: IVPB, Drug form: INJ, ONCE, Dosing Weight 93.75, kg, Start d ate: 05/14/15 10:25:00, Duration: 2 hr, Stop date: 05/14/15 10:25:00 Start Date: 05/14/15 Stop Date: 05/14/15 Status: Deleted morphine Sulfate 2 mg, 1 mL, Route: IVP, Drug form: INJ, Q4H, Dosing Weight 91.818, kg, PRN Pain Score 7-10, Start date: 05/14/15 4:39:00, Duration: 30 day, Stop date: 06/13/15 4:38:00 Notes: (Same as:MORPhine Sulfate) Start Date: 05/14/15 Stop Date: 05/15/15 Status: Discontinued Motrin 800 mg, Route: PO, Drug form: TAB, ONCE, Dosing Weight 91.818, kg, Priority: STA T, Start date: 05/14/15 1:13:00, Stop date: 05/14/15 1:13:00 Start Date: 05/14/15 Stop Date: 05/14/15 Status: Completed naproxen 500 mg, 1 tab, Route: PO, Drug form: TAB, BID, Dosing Weight 91.818, kg, PRN Oth er -See Comment, Start date: 05/14/15 4:39:00, Duration: 30 day, Stop date: 08/24 4:38:00, Back pain Notes: (Same as: Naprosyn) Take with food. Start Date: 05/14/15 Stop Date: 05/15/15 Status: Discontinued ondansetron 4 mg, 2 mL, Route: IVP, Drug form: INJ, Q6H, Dosing Weight 91.818, kg, PRN Nause a & Vomiting, Start date: 05/14/15 4:39:00, Duration: 30 day, Stop date: 06/13/15 4:38:00 Notes: (Same as: Therese) MEDICATION WASTE Product Size: 4 mgProduct Was dedrick: ___ mg Start Date: 05/14/15 Stop Date: 05/15/15 Status: Discontinued pantoprazole 40 mg, 1 tab, Route: PO, Drug form: ECTAB, Daily, Dosing Weight 91.818, kg, Prio rity: STAT, Start date: 05/14/15 4:39:00, Duration: 30 day, Stop date: 06/12/15 9:00:00 Notes: Tablet should not be chewed or crushed.(Same as: Protonix) Start Date: 05/14/15 Stop Date: 05/15/15 Status: Discontinued potassium chloride 40 mEq, 2 tab, Route: PO, Drug form: ERTAB, ONCE, Dosing Weight 91.818, kg, Prio rity: STAT, Start date: 05/14/15 1:46:00, Stop date: 05/14/15 1:46:00 Notes: (Same as: K-Dur 20)"Do Not Crush" With food and full glass of water Start Date: 05/14/15 Stop Date: 05/14/15 Status: Completed potassium chloride 40 mEq, 2 tab, Route: PO, Drug form: ERTAB, ONCE, Dosing Weight 91.818, kg, Star t date: 05/14/15 1:51:00, Stop date: 05/14/15 1:51:00 Notes: (Same as: K-Dur 20)"Do Not Crush" With food and full glass of water Start Date: 05/14/15 Stop Date: 05/14/15 Status: Completed potassium chloride 10 mEq, 100 mL, Route: IVPB, Drug form: INJ, Q1H, Dosing Weight 91.818, kg, Tota l Dose=20 meq, Start date: 05/14/15 2:00:00, Duration: 2 doses or times, Stop da te: 05/14/15 3:00:00, Peripheral Line Notes: Infuse at a rate of 10 mEq/hr.(Same as: KCL) Start Date: 05/14/15 Stop Date: 05/14/15 Status: Completed potassium chloride 10 mEq, 100 mL, Route: IVPB, Drug form: INJ, PRN, Dosing Weight 91.818, kg, PRN Abnormal Lab Result, For NON-ICU Patients Only, Start date: 05/14/15 2:20:00, Du ration: 30 day, Stop date: 06/13/15 2:19:00 Notes: Infuse at a rate of 10 mEq/hr.(Same as: KCL) Start Date: 05/14/15 Stop Date: 05/15/15 Status: Discontinued potassium chloride 20 mEq, 1 tab, Route: PO, Drug form: ERTAB, PRN, Dosing Weight 91.818, kg, PRN A bnormal Lab Result, For NON-ICU Patients Only, Start date: 05/14/15 2:20:00, Dur ation: 30 day, Stop date: 06/13/15 2:19:00 Notes: (Same as: K-Dur 20)"Do Not Crush" With food and full glass of water Start Date: 05/14/15 Stop Date: 05/15/15 Status: Discontinued potassium chloride 20 mEq, 15 mL, Route: NJ, Drug form: LIQ, PRN, Dosing Weight 91.818, kg, PRN Abn ormal Lab Result, For NON-ICU Patients Only, Start date: 05/14/15 2:20:00, Durat ion: 30 day, Stop date: 06/13/15 2:19:00 Notes: (Same as: Potassium Chloride) Start Date: 05/14/15 Stop Date: 05/15/15 Status: Discontinued potassium chloride 40 mEq, 2 tab, Route: PO, Drug form: ERTAB, ONCE, Dosing Weight 93.75, kg, Start date: 05/15/15 11:21:00, Stop date: 05/15/15 11:21:00 Notes: (Same as: K-Dur 20)"Do Not Crush" With food and full glass of water Start Date: 05/15/15 Stop Date: 05/15/15 Status: Completed potassium phosphate + Sodium Chloride 0.9% IV 250 mL 15 mmol, 5 mL, Route: IVPB, PRN, Dosing Weight 91.818, kg, PRN Abnormal Lab Resu lt, For NON-ICU Patients Only., Start date: 05/14/15 2:20:00, Duration: 30 day, Stop date: 06/13/15 2:19:00 Notes: (Same as: K Phosphate.) 1 mMol phoshate has 1.47 mEq potassium Infuse o tatum 4 hours Start Date: 05/14/15 Stop Date: 05/15/15 Status: Discontinued potassium phosphate + Sodium Chloride 0.9% IV 250 mL 30 mmol, 10 mL, Route: IVPB, PRN, Dosing Weight 91.818, kg, PRN Abnormal Lab Res ult, For NON-ICU Patients Only., Start date: 05/14/15 2:20:00, Duration: 30 day, Stop date: 06/13/15 2:19:00 Notes: (Same as: K Phosphate.) 1 mMol phoshate has 1.47 mEq potassium Infuse o tatum 4 hours Start Date: 05/14/15 Stop Date: 05/15/15 Status: Discontinued potassium phosphate-sodium phosphate 250 mg-278 mg-164 mg oral powder 2 pkt, Route: PO, Drug Form: PDR/REC, Dosing Weight 91.818, kg, PRN, PRN Abnorma l Lab Result, For NON-ICU Patients Only, Start date: 05/14/15 2:20:00, Duration: 30 day, Stop date: 06/13/15 2:19:00 Notes: (Same as: Neutra-Phos) Each 1.25 gm pkt has 250mg phosphorous. Mix w/2.5 oz water and stir. Start Date: 05/14/15 Stop Date: 05/15/15 Status: Discontinued Rocephin + Sodium Chloride 0.9% IV 100 mL 1 gm, Route: IVPB, [id number], Dosing Weight 91.818, kg, Priority: STAT, Start date : 05/14/15 4:39:00, Duration: 30 day, Stop date: 06/12/15 4:39:00 Notes: (Same As: Rocephin).Use with 100 mL NS and infuse over 30 min MEDICA TION WASTE Product Size: 1000 mgProduct Wasted: ___ mg Start Date: 05/14/15 Stop Date: 05/15/15 Status: Discontinued Saline Flush 0.9% 10 mL, Route: IVP, Drug Form: INJ, Dosing Weight 91.818, kg, PRN, PRN Line Flush , Start date: 05/13/15 21:23:00, Duration: 30 day, Stop date: 06/12/15 21:22:00 Notes: (Same as: BD Posiflush) Start Date: 05/13/15 Stop Date: 05/15/15 Status: Discontinued Saline Flush 0.9% 10 ml, Route: IVP, Drug Form: INJ, Dosing Weight 91.818, kg, PRN, PRN Line Flush , Start date: 05/14/15 4:39:00, Duration: 30 day, Stop date: 06/13/15 4:38:00 Notes: (Same as: BD Posiflush) Start Date: 05/14/15 Stop Date: 05/15/15 Status: Discontinued Sodium Chloride 0.9% (Bolus) IV 1,000 mL, 1,000 ml/hr, Infuse Over: 1 hr, Route: IV, ONCE, Priority: STAT, Dosin g Weight 91.818 kg, Start date: 05/13/15 21:23:00, Duration: 1 doses or times, S top date: 05/13/15 21:23:00 Start Date: 05/13/15 Stop Date: 05/13/15 Status: Completed Sodium Chloride 0.9% (Bolus) IV 1,000 mL, 1000 ml/hr, Infuse Over: 1 hr, Route: IV, 1,000, Drug form: INJ, ONCE, Priority: STAT, Dosing Weight 91.818 kg, Start date: 05/13/15 21:24:00, Duratio n: 1 doses or times, Stop date: 05/13/15 21:24:00 Start Date: 05/13/15 Stop Date: 05/13/15 Status: Completed Sodium Chloride 0.9% (Bolus) IV 1,000 mL, 1000 ml/hr, Infuse Over: 1 hr, Route: IV, 1,000, Drug form: INJ, ONCE, Priority: STAT, Dosing Weight 91.818 kg, Start date: 05/13/15 23:56:00, Duratio n: 1 doses or times, Stop date: 05/13/15 23:56:00 Start Date: 05/13/15 Stop Date: 05/14/15 Status: Completed Sodium Chloride 0.9% IV 1,000 mL 1,000 mL, Rate: 125 ml/hr, Infuse over: 8 hr, Route: IV, Dosing Weight 91.818 kg , Total Volume: 1,000, Start date: 05/14/15 4:39:00, Duration: 30 day, Stop date : 06/13/15 4:38:00 Start Date: 05/14/15 Stop Date: 05/15/15 Status: Discontinued sodium phosphate + Dextrose 5% in Water IV 250 mL 30 mmol, 10 mL, Route: IVPB, PRN, Dosing Weight 91.818, kg, PRN Abnormal Lab Res ult, For NON-ICU Patients Only., Start date: 05/14/15 2:20:00, Duration: 30 day, Stop date: 06/13/15 2:19:00 Start Date: 05/14/15 Stop Date: 05/15/15 Status: Discontinued sodium phosphate + Dextrose 5% in Water IV 250 mL 15 mmol, 5 mL, Route: IVPB, PRN, Dosing Weight 91.818, kg, PRN Abnormal Lab Resu lt, For NON-ICU Patients Only., Start date: 05/14/15 2:20:00, Duration: 30 day, Stop date: 06/13/15 2:19:00 Start Date: 05/14/15 Stop Date: 05/15/15 Status: Discontinued Tessalon Perles 100 mg, 1 cap, Route: PO, Drug form: CAP, ONCE, Dosing Weight 91.818, kg, Start date: 05/13/15 23:14:00, Stop date: 05/13/15 23:14:00 Notes: (Same As: Tessalon Perles)"Do Not Crush" Start Date: 05/13/15 Stop Date: 05/13/15 Status: Completed Results ELECTROLYTES 1 2 3 Most recent to oldest [Reference Range]: 136 mEq/L (05/15/15 12:29 AM) 135 mEq/L (05/14/15 9:05 PM) 138 mEq/L (05/14/15 4:00 PM) Sodium Lvl [135-145 mEq/L] 3.1 mEq/L *LOW* (05/15/15 12:29 AM) 4.1 mEq/L (05/14/15 9:05 PM) 3.6 mEq/L (05/14/15 4:00 PM) Potassium Lvl [3.5-5.1 mEq/L] 106 mEq/L (05/15/15 12:29 AM) 106 mEq/L (05/14/15 9:05 PM) 105 mEq/L (05/14/15 4:00 PM) Chloride Lvl [95-109 mEq/L] 18 mEq/L *LOW* (05/15/15 12:29 AM) 17 mEq/L *LOW* (05/14/15 9:05 PM) 20 mEq/L *LOW* (05/14/15 4:00 PM) CO2 [24-32 mEq/L] 15.1 mEq/L (05/15/15 12:29 AM) 16.1 mEq/L (05/14/15 9:05 PM) 16.6 mEq/L (05/14/15 4:00 PM) AGAP [10.0-20.0 mEq/L] CHEM PANEL 1 2 3 Most recent to oldest [Reference Range]: 0.48 mg/dL *LOW* (05/15/15 12:29 AM) 0.67 mg/dL (05/14/15 9:05 PM) 0.51 mg/dL (05/14/15 4:00 PM) Creatinine Lvl [0.50-1.40 mg/dL] 116 mL/min/1.73m2 1 *NA* (05/15/15 12:29 AM) 104 mL/min/1.73m2 2 *NA* (05/14/15 9:05 PM) 114 mL/min/1.73m2 3 *NA* (05/14/15 4:00 PM) eGFR 7 mg/dL (05/15/15 12:29 AM) 7 mg/dL (05/14/15 9:05 PM) 6 mg/dL *LOW* (05/14/15 4:00 PM) BUN [7-22 mg/dL] 6 (05/13/15 9:37 PM) B/C Ratio [6-25] 279 mg/dL *HI* (05/15/15 12:29 AM) 379 mg/dL *HI* (05/14/15 9:05 PM) 307 mg/dL *HI* (05/14/15 4:00 PM) Glucose Lvl [70-99 mg/dL] 8.0 g/dL (05/13/15 9:37 PM) Total Protein [6.4-8.4 g/dL] 2.7 g/dL *LOW* (05/13/15 9:37 PM) Albumin Lvl [3.5-5.0 g/dL] 5.3 g/dL *HI* (05/13/15 9:37 PM) Globulin [2.0-4.0 g/dL] 0.5 *LOW* (05/13/15 9:37 PM) A/G Ratio [0.7-1.6] 7.8 mg/dL *LOW* (05/15/15 12:29 AM) 8.1 mg/dL *LOW* (05/14/15 9:05 PM) 7.8 mg/dL *LOW* (05/14/15 4:00 PM) Calcium Lvl [8.5-10.5 mg/dL] 1.3 mg/dL *LOW* (05/14/15 5:22 AM) Magnesium Lvl [1.8-2.4 mg/dL] 23 unit/L (05/13/15 9:37 PM) ALT [0-65 unit/L] 29 unit/L (05/13/15 9:37 PM) AST [0-37 unit/L] 123 unit/L (05/13/15 9:37 PM) Alk Phos [39-136 unit/L] 0.7 mg/dL (05/13/15 9:37 PM) Bili Total [0.2-1.3 mg/dL] 4.02 mmol/L *HI* (05/14/15 5:22 AM) 3.18 mmol/L *HI* (05/13/15 9:37 PM) Ketone Quantitative [<=0.27 mmol/L] 1.5 mMol/L (05/14/15 2:27 AM) 1.9 mMol/L (05/13/15 9:37 PM) Lactic Acid Lvl [0.5-2.2 mMol/L] 1Result Comment: The eGFR is calculated using [...] be mul tiplied by the estimated BMI. 3Result Comment: The eGFR is calculated using the [...] tiplied by the estimated BMI. CARDIAC ENZYMES 1 2 3 Most recent to oldest [Reference Range]: 37 unit/L (05/13/15 9:37 PM) Total CK [12-191 unit/L] <0.5 ng/mL (05/13/15 9:37 PM) CK MB [0.5-3.6 ng/mL] <1.4 (05/13/15 9:37 PM) CK MB Index [0.0-2.5] <0.02 ng/mL (05/13/15 9:37 PM) Troponin-I [0.00-0.40 ng/mL] SPECIAL CHEMISTRY 1 2 3 Most recent to oldest [Reference Range]: 10.4 % *HI* (05/14/15 5:22 AM) Hgb A1C [<=5.6 %] URINE AND STOOL 1 2 3 Most recent to oldest [Reference Range]: Marked *ABN* (05/13/15 10:18 PM) UA Turbidity [Clear] Ltyellow *NA* (05/13/15 10:18 PM) UA Color 6.0 (05/13/15 10:18 PM) UA pH [5.0-8.0] 1.029 (05/13/15 10:18 PM) UA Spec Grav [<=1.030] 500 mg/dL *ABN* (05/13/15 10:18 PM) UA Glucose [Negative mg/dL] Small *ABN* (05/13/15 10:18 PM) UA Blood [Negative] 80 mg/dL *ABN* (05/13/15 10:18 PM) UA Ketones [Negative mg/dL] Negative mg/dL (05/13/15 10:18 PM) UA Protein [Negative mg/dL] 2.0 mg/dL *HI* (05/13/15 10:18 PM) UA Urobilinogen [0.1-1.0 mg/dL] Negative *NA* (05/13/15 10:18 PM) UA Bili [Negative] Moderate *ABN* (05/13/15 10:18 PM) UA Leuk Est [Negative] Negative (05/13/15 10:18 PM) UA Nitrite [Negative] 8 /HPF *HI* (05/13/15 10:18 PM) UA WBC [0-5 /HPF] 6 /HPF *HI* (05/13/15 10:18 PM) UA RBC [0-2 /HPF] Occasional /HPF *NA* (05/13/15 10:18 PM) UA Bacteria [None Seen /HPF] Many /LPF *ABN* (05/13/15 10:18 PM) UA Sq Epi [Few /LPF] HEMATOLOGY 1 2 3 Most recent to oldest [Reference Range]: 10.5 K/CMM *HI* (05/13/15 9:37 PM) WBC [3.7-10.4 K/CMM] 4.65 M/CMM (05/13/15 9:37 PM) RBC [4.20-5.40 M/CMM] 14.2 g/dL (05/13/15 9:37 PM) Hgb [12.0-16.0 g/dL] 42.4 % (05/13/15 9:37 PM) Hct [36.0-48.0 %] 91.1 fL (05/13/15 9:37 PM) MCV [80.0-98.0 fL] 30.6 pg (05/13/15 9:37 PM) MCH [27.0-31.0 pg] 33.6 g/dL (05/13/15 9:37 PM) MCHC [32.0-36.0 g/dL] 12.8 % (05/13/15 9:37 PM) RDW [11.5-14.5 %] 197 K/CMM (05/14/15 4:00 PM) 215 K/CMM (05/13/15 9:37 PM) Platelet [133-450 K/CMM] 9.7 fL (05/13/15 9:37 PM) MPV [7.4-10.4 fL] 72.3 % (05/13/15 9:37 PM) Segs [45.0-75.0 %] 18.5 % *LOW* (05/13/15 9:37 PM) Lymphocytes [20.0-40.0 %] 8.5 % (05/13/15 9:37 PM) Monocytes [2.0-12.0 %] 0.1 % (05/13/15 9:37 PM) Eosinophils [0.0-4.0 %] 0.6 % (05/13/15 9:37 PM) Basophils [0.0-1.0 %] 7.6 K/CMM (05/13/15 9:37 PM) Segs-Bands # [1.5-8.1 K/CMM] 1.9 K/CMM (05/13/15 9:37 PM) Lymphocytes # [1.0-5.5 K/CMM] 0.9 K/CMM *HI* (05/13/15 9:37 PM) Monocytes # [0.0-0.8 K/CMM] 0.1 K/CMM (05/13/15 9:37 PM) Basophils # [0.0-0.2 K/CMM] 14.5 seconds (05/13/15 9:37 PM) PT [12.0-14.7 seconds] 1.10 (05/13/15 9:37 PM) INR [0.85-1.17] 33.2 seconds (05/14/15 4:00 PM) 29.4 seconds (05/13/15 9:37 PM) PTT [22.9-35.8 seconds] VIRAL - SEROLOGY 1 2 3 Most recent to oldest [Reference Range]: Negative (05/13/15 9:40 PM) Influ A [Negative] Negative (05/13/15 9:40 PM) Influ B [Negative] Immunizations Vaccine Date Refusal Reason influenza virus vaccine, inactivated 05/14/15 Procedures Procedure Date Related Diagnosis Body Site Laminectomy Partial hysterectomy Social History Social History Type Response Alcohol Current, Type Wine. Frequency: 1-2 times per month. Previous treatment: None. Smoking Status Never smoker; Exposure to Tobacco Smoke None; Cigarette Smoking Last 365 Days No; Reg Smoking Cessation Counseling No Assessment and Plan Extracted from: Title: Clinical Document Author: Yessenia Carvajal MD Date: 05/14/15 Chart reveiwed. Patient seen and examined. WIll continue to follow. Clinically stable. Add Long acting insulin. Replace magnesium IV. Continue abx and we will continue to follow. Extracted from: Title: History & Physical Author: Calvin Glass MD Date: 05/14/15 H&P [facility] Completed: May, 02:00 by Calvin Glass MD RM: [id number] - 06, KASI [id number] (: 1965) F Attending: Yessenia Carvajal MDPhone: Service: Internal Medicine Reason for Admission: DIABETIC KETOSIS, ACUTE HYPERGLYCEMIA, AC DEHYDRATION Working DRG: None Documented Code status: None Specified=FULL CODECurrent diet: Isolation: None Documented Allergies: NKDA SUBJECTIVE: fever, cough, thirsty 50 year old with diabetes mellitus type II, follows at [facility]. She went there this evening and was referred to the ER for presumed bronchitis and decompensated diabetes. Per patient, several days of malaise, fatigue, non- productive cough. 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 She received her flu vaccine this season. Denies chest pain or palpitations. +generalized bodyaches. Over the past year she has had significant weight loss due to her diagnosis. + polyuria. +polydipsia "I'm so thirsty". She denies Constitutional Symptoms: _ weight gain, _ fatigue, _ malaise Eyes: _ diplopia, _ blurred vision, _ redness, _ discharge, _ loss of vision Ears, Nose, Mouth, Throat: _ dysphagia, _ odynophagia, _ otalgia, _ deafness, _ rhinorrhea Cardiovascular: _ chest pain, _ SOB, _ HERNANDEZ, _ orthopnea, _ PND, _ poor exercise tolerance, _ palpitations Respiratory: _ same as CVS, _ hemoptysis Gastrointestinal: _ NVD, _ BPR, _ dark stool, _ constipation, _ abdominal pain Genitourinary: _ dysuria, _ urgency, _ nocturia, _ incontinence Musculoskeletal: _ arthralgia, _ myalgia, _ stiffness Integumentary (skin and/or breast): _ rash, _ hives, _ breast pain, _ mass, _ nipple dc Neurological: _ headache, _ seizure, _ dizziness, _ tingling, _ numbness Psychiatric: _ anxiety, _ depression, _ insomnia Endocrine: _ weight gain, _ cold or heat intolerance, _ palpitations Hematologic/Lymphatic: _ bleeding, _ bruising, _ edema, _ lumps (axilla groin neck) Allergic/Immunologic: _ rash, _ allergies, _ fever, _ chills All other systems reviewed and are negative. PAST MEDICAL HISTORY 1. Diabetes mellitus PAST SURGICAL HISTORY 1. Back surgery 2. Partial hysterectomy MEDICATIONS MAR not available for review Uses insulin when able to afford SOCIAL HISTORY No noted tobacco, alcohol or drugs FAMILY HISTORY Grandparents diabetes OBJECTIVE Pleasant lady H: NC/NT E; EOMI, PERRL,sclera clear Nares patent OP lips dry, mouth slightly dry with dentition poor Neck supple, full without adenopathy Lungs crackles in RLL posteriorly without tachypnea or retractions CV S1S2 RRR without murmur Abdomen flat, soft, full without organomegaly or tenderness /Rectal deferred Skin without lesions MS FROM Extremities feet no C/C/E Neurological AOx3, CNII-XII intact Labs and diagnostic studies reviewed ASSESSMENT & EXAM 50 year old with 1. Uncontrolled diabetes mellitus, acidosis with ketosis seems to be responding to fluids and first course of treatment 2. Acute RLL Community Acquired Pneumoniae 3. Hypokalemia PLAN & TREATMENT 1. The patient is placed in observation to a medical-surgical bed 2. Continue IV hydration and electrolyte replacement as needed with supplemental insulin 3. will check stat glucose now 4. will also send blood culture with lactate and start on coverage for CAP 5. Influenza A/B pending Please see orders for further details on the initial managementof this patient I reviewed all records of this patient on my examination. Exam and evaluation of the patient took 45 minutes with 50% of my time spent oncare and consultation. The patients length of stay on the service will be less than 2 midnights. The patients disposition post discharge should be home. Ready for Discharge (Yes/No)? [place] still necessary (Yes/No): Line still necessary (Yes/No): 24hr Labs 05/14 0107 Glucose Eyy341 H BUN6 L Creatinine Lvl0.67 Sodium Rqi464 L Potassium Lvl3.0 C Chloride Uuu401 CO217 L AGAP16.0 Calcium Lvl7.8 L [id number] 05/13 2340 Site VenR AC Temp Ven37.0 pH Ven7.31 pCO2 Ven34 L pO2 Ven26 HCO3 Ven17 L BE Marlon-8 L O2 Sat Ven40.8 Allens VenPositive Mode VenRm Air 05/13 2309 Glucose JHU711 C 05/13 2218 UA ColorLtyellow UA TurbidityMarked UA Spec Grav1.029 UA pH6.0 UA ProteinNegative UA Jgwemey112 UA Ihlmqxc31 UA BiliNegative UA BloodSmall UA Urobilinogen2.0 H UA NitriteNegative UA Leuk EstModerate UA RBC6 H UA WBC8 H UA BacteriaOccasional UA Sq EpiMany 05/13 2140 Influ ANegative Influ BNegative 05/13 2137 Lactic Acid Lvl1.9 Total CK37 Troponin-I<0.02 CK MB<0.5 Ketone Quantitative3.18 H CK MB Index<1.4 Sodium Vag011 L Potassium Lvl3.6 Chloride Lvl93 L CO218 L AGAP18.6 Glucose Vys981 C Creatinine Lvl0.94 BUN6 L B/C Ratio6 Total Protein8.0 Albumin Lvl2.7 L Globulin5.3 H A/G Ratio0.5 L Calcium Lvl8.5 ALT23 AST29 Alk Dydm035 Bili Total0.7 eGFR72 WBC10.5 H RBC4.65 Hgb14.2 Hct42.4 MCV91.1 MCH30.6 MCHC33.6 RDW12.8 Vqdrmpgz942 MPV9.7 Segs72.3 Monocytes8.5 Odgxpknhaln06.5 L Eosinophils0.1 Basophils0.6 Segs-Bands #7.6 Lymphocytes #1.9 Monocytes #0.9 H Basophils #0.1 PT14.5 INR1.10 PTT29.4 05/13 2119 Glucose EWV106 C VitalsTmp(F)[id number] 05/13 22:0798.157443/[id number]--- 05/13 21:8331.3652701/862911--- 24 Hr Tmax: 99.0F (37.22c) at 05/13 21:18Vital Signs are the last 5 in the past 48 hours. DateWt(kg)Wt(lb)Ht(cm)Ht(in)Method 05/13 (initial) 91.82 202.00Estimated .10 65.00Stated I&ORecordInOutBal 05/324hr Tot 1999 0 05/224hr Tot 0 0 0 Medications (14) Active Scheduled Meds (1): 05/14/15 potassium chloride 10 mEq IVPB Q1H Unscheduled Meds: None PRN Meds (4): 05/13/15 Dextrose 50% in Water IV (Dextrose 50% Syringe) 12.5 gm IVP PRN 05/13/15 Dextrose 50% in Water IV (Dextrose 50% Syringe) 25 gm IVP PRN 05/13/15 glucagon 1 mg IM PRN 05/13/15 sodium chloride (Saline Flush 0.9%) 10 mL IVP PRN One Time Meds (9): 05/13/15 (Completed) Insulin regular 5 unit IV ONCE 05/13/15 (Completed) Insulin regular 5 unit IV ONCE 05/13/15 (Completed) Sodium Chloride 0.9% IV (Sodium Chloride 0.9% (Bolus) IV) 1,000 mL IV ONCE 1,000 ml/hr 05/13/15 (Completed) Sodium Chloride 0.9% IV (Sodium Chloride 0.9% (Bolus) IV) 1,000 mL IV ONCE 1000 ml/hr 05/13/15 (Ordered) Sodium Chloride 0.9% IV (Sodium Chloride 0.9% (Bolus) IV) 1,000 mL IV ONCE 1,000 ml/hr 05/13/15 (Completed) benzonatate (Tessalon Perles) 100 mg PO ONCE 05/14/15 (Ordered) ibuprofen (Motrin) 800 mg PO ONCE 05/14/15 (Ordered) potassium chloride 40 mEq PO ONCE 05/14/15 (Ordered) potassium chloride 40 mEq PO ONCE Continuous Infusions: None
--- OUTSIDE RECORDS SUMMARY | 2019-02-06 15:26 | XMS REPORT | Summary of Care ---
Author Author [facility] [place] Organization [facility] [place] Address Unknown Phone Unavailable Encounter HQ Hany_dali(FIN) [id number] Date(s): 07/19/18 - 07/19/18 [facility] [place] [address] [phone] Discharge Disposition: Home or Self Care Attending Physician: Luis Fernando Emanuel MD Referring Physician: Luis Fernando Emanuel MD Vital Signs No data available for this section Problem List Condition Effective Dates Status Health Status Informant High blood Active sugar(Confirmed) Hypomagnesemia(Confi Resolved rmed) Pneumonia(Confirmed) Resolved Allergies, Adverse Reactions, Alerts Substance Reaction Severity Status NKDA Active Medications No data available for this section Results No data available for this section Immunizations Given and Recorded Vaccine Date Status Refusal Reason pneumococcal 23-valent vaccine 07/13/15 Given influenza virus vaccine, inactivated 05/14/15 Given Not Given Vaccine Date Status Refusal Reason influenza virus vaccine, inactivated 07/13/15 Not Given Patient Refuses Procedures Procedure Date Related Diagnosis Body Site Status Laminectomy Completed Partial hysterectomy Completed Social History Social History Type Response Alcohol Current, Type Wine. Frequency: 1-2 times per month. Previous treatment: None. Smoking Status Never smoker; Exposure to Tobacco Smoke None; Cigarette Smoking Last 365 Days No; Reg Smoking Cessation Counseling No entered on: 07/12/15 Assessment and Plan No data available for this section
--- OUTSIDE RECORDS SUMMARY | 2019-02-06 15:26 | XMS REPORT | Summary of Care ---
Author Author [facility] [place] Organization [facility] [place] Address Unknown Phone Unavailable Encounter [facility] Hany_dali(FIN) [id number] Date(s): 06/27/18 - 06/27/18 [facility] [place] [address] [phone] Encounter Diagnosis Encounter for general adult medical examination without abnormal findings (Final) - 07/02/18 Discharge Disposition: Home or Self Care Attending Physician: Juno Lombardi MD Referring Physician: Juno Lombardi MD Vital Signs No data available for this section Problem List Condition Effective Dates Status Health Status Informant High blood Active sugar(Confirmed) Hypomagnesemia(Confi Resolved rmed) Pneumonia(Confirmed) Resolved Allergies, Adverse Reactions, Alerts No Known Medication Allergies Medications No data available for this section [...]
--- OUTSIDE RECORDS SUMMARY | 2019-02-06 15:26 | XMS REPORT | CCD ---
Author Author Auto Generated Organization [facility] Address Unknown Phone Unavailable Care Team Providers Care Coil Tier Name Role Phone Gunner Boucher CP Allergies, Adverse Reactions, Alerts Substance Reaction Status NKDA Active Medications Medication Instructions Start Date End Date Status Glucophage Substitution Allowed 04/20/2012 Ordered [place] 5/325 oral 2 tab, Route: PO, Dosing Weight 04/20/2012 04/20/2012 Completed tablet 93.182, kg, ONCE, Start date: 04/20/12 12:26:00, Stop date: 04/20/12 12:26:00 Vicodin 5/500 oral 1 tab, PO, Q6H, PRN, 20 tab, for 04/20/2012 04/24/2012 Ordered tablet Pain, Substitution Allowed, Maintenance Vital Signs Most recent to oldest [Reference Range]: 1 Height 165.10 cm (04/20/2012 11:32:00) Weight 93.182 kg (04/20/2012 11:32:00)
--- OUTSIDE RECORDS SUMMARY | 2019-02-06 15:26 | XMS REPORT | Continuity of Care Document ---
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 [facility]/13/2015 [facility]toid [facility] virus vaccine, inactivated 05/14/2015 Left deltoid completed Frank [facility] Results Order Name Results Value Reference Range Date Interpretation Comments Source HEMATOLOGY PTT 31.2 22.9 - 35.8 07/13/2015 [facility] ELECTROLYTES AGAP 11.6 10.0 - 20.0 07/13/2015 [facility] ELECTROLYTES Calcium Lvl 8.4 8.5 - 10.5 07/13/2015 [facility] ELECTROLYTES Chloride Lvl 103 95 - 109 07/13/2015 [facility] ELECTROLYTES Potassium Lvl 3.6 3.5 - 5.1 07/13/2015 [facility] ELECTROLYTES CO2 24 24 - 32 07/13/2015 [facility] ELECTROLYTES BUN 9 7 - 22 07/13/2015 [facility] ELECTROLYTES Sodium Lvl 135 135 - 145 07/13/2015 [facility] ELECTROLYTES Glucose Lvl 261 70 - 99 07/13/2015 [facility] ELECTROLYTES eGFR 112 07/13/2015 Result Comment: The eGFR is calculated using the [...] from the National Kidney Disease Education Program (NKDEP) which additionally recommends that when the eGFR is used in patients with extremes of body mass index for purposes of drug dosing, the eGFR should be multiplied by the estimated BMI. [facility] ELECTROLYTES Creatinine Lvl 0.53 0.50 - 1.40 07/13/2015 [facility] HEMATOLOGY Segs 60.7 45.0 - 75.0 07/13/2015 [facility] HEMATOLOGY Eosinophils 0.8 0.0 - 4.0 07/13/2015 [facility] HEMATOLOGY Lymphocytes 31.4 20.0 - 40.0 07/13/2015 [facility] HEMATOLOGY Monocytes 6.6 2.0 - 12.0 07/13/2015 [facility] HEMATOLOGY Monocytes # 0.5 0.0 - 0.8 07/13/2015 [facility] HEMATOLOGY Eosinophils # 0.1 0.0 - 0.5 07/13/2015 [facility] HEMATOLOGY Basophils 0.5 0.0 - 1.0 07/13/2015 [facility] HEMATOLOGY Lymphocytes # 2.4 1.0 - 5.5 07/13/2015 [facility] HEMATOLOGY Segs-Bands # 4.7 1.5 - 8.1 07/13/2015 [facility] HEMATOLOGY MPV 10.2 7.4 - 10.4 07/13/2015 [facility] Platelet 173 133 - 450 07/13/2015 [facility] HEMATOLOGY Hct 39.6 36.0 - 48.0 07/13/2015 [facility] HEMATOLOGY RBC 4.28 4.20 - 5.40 07/13/2015 [facility] MCV 92.6 80.0 - 98.0 07/13/2015 [facility] Hgb 13.0 12.0 - 16.0 07/13/2015 [facility] MCHC 32.7 32.0 - 36.0 07/13/2015 [facility] HEMATOLOGY RDW 12.8 11.5 - 14.5 07/13/2015 [facility] HEMATOLOGY WBC 7.7 3.7 - 10.4 07/13/2015 [facility] MCH 30.3 27.0 - 31.0 07/13/2015 [facility] SPECIAL CHEMISTRY Hgb A1C 10.5 <=5.6 % 07/13/2015 [facility] CARDIAC ENZYMES Troponin-I <0.02 0.00 - 0.40 07/12/2015 [facility] CHEM PANEL A/G Ratio 0.8 0.7 - 1.6 07/12/2015 [facility] CHEM PANEL Globulin 4.5 2.0 - 4.0 07/12/2015 [facility] CHEM PANEL AGAP 19.2 10.0 - 20.0 07/12/2015 [facility] CHEM PANEL B/C Ratio 13 6 - 25 07/12/2015 [facility] CHEM PANEL eGFR 76 07/12/2015 Result Comment: The eGFR is calculated using the [...] from the National Kidney Disease Education Program (NKDEP) which additionally recommends that when the eGFR is used in patients with extremes of body mass index for purposes of drug dosing, the eGFR should be multiplied by the estimated BMI. [facility] CHEM PANEL Alk Phos 142 39 - 136 07/12/2015 [facility] CHEM PANEL AST 54 0 - 37 07/12/2015 [facility] CHEM PANEL Albumin Lvl 3.6 3.5 - 5.0 07/12/2015 [facility] CHEM PANEL CO2 18 24 - 32 07/12/2015 [facility] CHEM PANEL Calcium Lvl 9.1 8.5 - 10.5 07/12/2015 [facility] CHEM PANEL ALT 28 0 - 65 07/12/2015 [facility] CHEM PANEL BUN 12 7 - 22 07/12/2015 [facility] CHEM PANEL Creatinine Lvl 0.90 0.50 - 1.40 07/12/2015 [facility] CHEM PANEL Sodium Lvl 130 135 - 145 07/12/2015 [facility] CHEM PANEL Total Protein 8.1 6.4 - 8.4 07/12/2015 [facility] CHEM PANEL Glucose Lvl 371 70 - 99 07/12/2015 [facility] CHEM PANEL Chloride Lvl 97 95 - 109 07/12/2015 [facility] CHEM PANEL Potassium Lvl 4.2 3.5 - 5.1 07/12/2015 [facility] CHEM PANEL Bili Total 1.0 0.2 - 1.3 07/12/2015 [facility] CHEM PANEL Lipase Lvl 120 73 - 393 07/12/2015 [facility] DRUG SCREEN UDS Note See Note (07/12/15 8:39 AM) 07/12/2015 [facility] DRUG SCREEN U Opiate Scr Positive *ABN* (07/12/15 8:39 AM) Negative 07/12/2015 [facility] DRUG SCREEN U Phencyc Scr Negative *NA* (07/12/15 8:39 AM) Negative 07/12/2015 [facility] DRUG SCREEN U Amph Scr Negative *NA* (07/12/15 8:39 AM) Negative 07/12/2015 [facility] DRUG SCREEN U Cannab Scr Negative *NA* (07/12/15 8:39 AM) Negative 07/12/2015 [facility] DRUG SCREEN U Cocaine Scr Positive *ABN* (07/12/15 8:39 AM) Negative 07/12/2015 [facility] DRUG SCREEN U Miracle Scr Negative *NA* (07/12/15 8:39 AM) Negative 07/12/2015 [facility] DRUG SCREEN U Benzodia Scr Negative *NA* (07/12/15 8:39 AM) Negative 07/12/2015 [facility] HEMATOLOGY Basophils # 0.1 0.0 - 0.2 07/12/2015 [facility] HEMATOLOGY Lymphocytes # 2.3 1.0 - 5.5 07/12/2015 [facility] HEMATOLOGY Monocytes # 0.5 0.0 - 0.8 07/12/2015 [facility] HEMATOLOGY Segs-Bands # 8.7 1.5 - 8.1 07/12/2015 [facility] HEMATOLOGY Basophils 0.8 0.0 - 1.0 07/12/2015 [facility] HEMATOLOGY Eosinophils 0.4 0.0 - 4.0 07/12/2015 [facility] HEMATOLOGY Monocytes 4.5 2.0 - 12.0 07/12/2015 [facility] HEMATOLOGY Lymphocytes 20.0 20.0 - 40.0 07/12/2015 [facility] HEMATOLOGY Segs 74.3 45.0 - 75.0 07/12/2015 [facility] HEMATOLOGY MPV 10.6 7.4 - 10.4 07/12/2015 [facility] HEMATOLOGY Platelet 221 133 - 450 07/12/2015 [facility] HEMATOLOGY RDW 12.8 11.5 - 14.5 07/12/2015 [facility] HEMATOLOGY MCHC 32.9 32.0 - 36.0 07/12/2015 [facility] HEMATOLOGY MCH 30.4 27.0 - 31.0 07/12/2015 [facility] HEMATOLOGY WBC 11.7 3.7 - 10.4 07/12/2015 [facility] HEMATOLOGY RBC 5.25 4.20 - 5.40 07/12/2015 [facility] HEMATOLOGY Hct 48.5 36.0 - 48.0 07/12/2015 [facility] HEMATOLOGY Hgb 15.9 12.0 - 16.0 07/12/2015 [facility] HEMATOLOGY MCV 92.5 80.0 - 98.0 07/12/2015 [facility] URINE AND STOOL UA Color Ltyellow 07/12/2015 [facility] URINE AND STOOL UA Urobilinogen <=1.0 mg/dL 0.1 - 1.0 07/12/2015 [facility] URINE AND STOOL UA RBC 2 0 - 2 07/12/2015 [facility] URINE AND STOOL UA Bacteria Occasional /HPF None Seen /HPF 07/12/2015 [facility] URINE AND STOOL UA Bili Negative *NA* (07/12/15 8:39 AM) Negative 07/12/2015 [facility] URINE AND STOOL UA Nitrite Negative (07/12/15 8:39 AM) Negative 07/12/2015 [facility] URINE AND STOOL UA Blood Small *ABN* (07/12/15 8:39 AM) Negative 07/12/2015 [facility] URINE AND STOOL UA WBC 45 0 - 5 07/12/2015 [facility] URINE AND STOOL UA Sq Epi Few /LPF Few /LPF 07/12/2015 [facility] URINE AND STOOL UA Leuk Est Small *ABN* (07/12/15 8:39 AM) Negative 07/12/2015 [facility] URINE AND STOOL UA Protein Negative mg/dL Negative mg/dL 07/12/2015 [facility] URINE AND STOOL UA Ketones 80 mg/dL Negative mg/dL 07/12/2015 [facility] URINE AND STOOL UA Glucose 500 mg/dL Negative mg/dL 07/12/2015 [facility] URINE AND STOOL UA Turbidity Clear (07/12/15 8:39 AM) Clear 07/12/2015 [facility] URINE AND STOOL UA pH 6.0 5.0 - 8.0 07/12/2015 [facility] URINE AND STOOL UA Spec Grav 1.030 <=1.030 07/12/2015 [facility] CHEM PANEL eGFR 116 05/15/2015 Result Comment: The eGFR is calculated using the [...] from the National Kidney Disease Education Program (NKDEP) which additionally recommends that when the eGFR is used in patients with extremes of body mass index for purposes of drug dosing, the eGFR should be multiplied by the estimated BMI. [facility] CHEM PANEL Creatinine Lvl 0.48 0.50 - 1.40 05/15/2015 [facility] CHEM PANEL Sodium Lvl 136 135 - 145 05/15/2015 [facility] CHEM PANEL BUN 7 7 - 22 05/15/2015 [facility] CHEM PANEL Glucose Lvl 279 70 - 99 05/15/2015 [facility] CHEM PANEL CO2 18 24 - 32 05/15/2015 [facility] CHEM PANEL Potassium Lvl 3.1 3.5 - 5.1 05/15/2015 [facility] CHEM PANEL Chloride Lvl 106 95 - 109 05/15/2015 [facility] CHEM PANEL AGAP 15.1 10.0 - 20.0 05/15/2015 [facility] CHEM PANEL Calcium Lvl 7.8 8.5 - 10.5 05/15/2015 [facility] ELECTROLYTES AGAP 16.1 10.0 - 20.0 05/15/2015 [facility] ELECTROLYTES Calcium Lvl 8.1 8.5 - 10.5 05/15/2015 [facility] ELECTROLYTES CO2 17 24 - 32 05/15/2015 [facility] ELECTROLYTES Chloride Lvl 106 95 - 109 05/15/2015 [facility] ELECTROLYTES Potassium Lvl 4.1 3.5 - 5.1 05/15/2015 [facility] ELECTROLYTES Sodium Lvl 135 135 - 145 05/15/2015 [facility] ELECTROLYTES BUN 7 7 - 22 05/15/2015 [facility] ELECTROLYTES Glucose Lvl 379 70 - 99 05/15/2015 [facility] ELECTROLYTES Creatinine Lvl 0.67 0.50 - 1.40 05/15/2015 [facility] ELECTROLYTES eGFR 104 05/15/2015 Result Comment: The eGFR is calculated using the [...] from the National Kidney Disease Education Program (NKDEP) which additionally recommends that when the eGFR is used in patients with extremes of body mass index for purposes of drug dosing, the eGFR should be multiplied by the estimated BMI. [facility] ELECTROLYTES AGAP 16.6 10.0 - 20.0 05/14/2015 [facility] ELECTROLYTES Calcium Lvl 7.8 8.5 - 10.5 05/14/2015 [facility] ELECTROLYTES CO2 20 24 - 32 05/14/2015 [facility] ELECTROLYTES Sodium Lvl 138 135 - 145 05/14/2015 [facility] ELECTROLYTES Potassium Lvl 3.6 3.5 - 5.1 05/14/2015 [facility] ELECTROLYTES Chloride Lvl 105 95 - 109 05/14/2015 [facility] ELECTROLYTES Glucose Lvl 307 70 - 99 05/14/2015 [facility] ELECTROLYTES BUN 6 7 - 22 05/14/2015 [facility] ELECTROLYTES eGFR 114 05/14/2015 Result Comment: The eGFR is calculated using the [...] from the National Kidney Disease Education Program (NKDEP) which additionally recommends that when the eGFR is used in patients with extremes of body mass index for purposes of drug dosing, the eGFR should be multiplied by the estimated BMI. [facility] ELECTROLYTES Creatinine Lvl 0.51 0.50 - 1.40 05/14/2015 [facility] HEMATOLOGY Platelet 197 133 - 450 05/14/2015 [facility] HEMATOLOGY PTT 33.2 22.9 - 35.8 05/14/2015 [facility] CHEM PANEL Ketone Quantitative 4.02 <=0.27 mmol/L 05/14/2015 [facility] CHEM PANEL Magnesium Lvl 1.3 1.8 - 2.4 05/14/2015 [facility] SPECIAL CHEMISTRY Hgb A1C 10.4 <=5.6 % 05/14/2015 [facility] CHEM PANEL Lactic Acid Lvl 1.5 0.5 - 2.2 05/14/2015 [facility] URINE AND STOOL UA RBC 6 0 - 2 05/14/2015 [facility] URINE AND STOOL UA Blood Small *ABN* (05/13/15 10:18 PM) Negative 05/14/2015 [facility] URINE AND STOOL UA Leuk Est Moderate *ABN* (05/13/15 10:18 PM) Negative 05/14/2015 [facility] URINE AND STOOL UA Sq Epi Many /LPF Few /LPF 05/14/2015 [facility] URINE AND STOOL UA Nitrite Negative (05/13/15 10:18 PM) Negative 05/14/2015 [facility] URINE AND STOOL UA WBC 8 0 - 5 05/14/2015 [facility] URINE AND STOOL UA Urobilinogen 2.0 0.1 - 1.0 05/14/2015 [facility] URINE AND STOOL UA Bacteria Occasional /HPF None Seen /HPF 05/14/2015 [facility] URINE AND STOOL UA Bili Negative *NA* (05/13/15 10:18 PM) Negative 05/14/2015 [facility] URINE AND STOOL UA Glucose 500 mg/dL Negative mg/dL 05/14/2015 [facility] URINE AND STOOL UA Ketones 80 mg/dL Negative mg/dL 05/14/2015 [facility] URINE AND STOOL UA Spec Grav 1.029 <=1.030 05/14/2015 [facility] URINE AND STOOL UA Turbidity Marked *ABN* (05/13/15 10:18 PM) Clear 05/14/2015 [facility] URINE AND STOOL UA pH 6.0 5.0 - 8.0 05/14/2015 [facility] URINE AND STOOL UA Protein Negative mg/dL Negative mg/dL 05/14/2015 [facility] URINE AND STOOL UA Color Ltyellow 05/14/2015 [facility] VIRAL - SEROLOGY Influ B Negative (05/13/15 9:40 PM) Negative 05/14/2015 [facility] VIRAL - SEROLOGY Influ A Negative (05/13/15 9:40 PM) Negative 05/14/2015 [facility] CARDIAC ENZYMES Troponin-I <0.02 0.00 - 0.40 05/14/2015 [facility] CARDIAC ENZYMES Total CK 37 12 - 191 05/14/2015 [facility] CARDIAC ENZYMES CK MB <0.5 0.5 - 3.6 05/14/2015 [facility] CARDIAC ENZYMES CK MB Index <1.4 0.0 - 2.5 05/14/2015 [facility] CHEM PANEL Lactic Acid Lvl 1.9 0.5 - 2.2 05/14/2015 [facility] CHEM PANEL Ketone Quantitative 3.18 <=0.27 mmol/L 05/14/2015 [facility] CHEM PANEL A/G Ratio 0.5 0.7 - 1.6 05/14/2015 [facility] CHEM PANEL ALT 23 0 - 65 05/14/2015 [facility] CHEM PANEL AST 29 0 - 37 05/14/2015 [facility] CHEM PANEL Alk Phos 123 39 - 136 05/14/2015 [facility] CHEM PANEL Bili Total 0.7 0.2 - 1.3 05/14/2015 [facility] CHEM PANEL B/C Ratio 6 6 - 25 05/14/2015 [facility] CHEM PANEL Total Protein 8.0 6.4 - 8.4 05/14/2015 [facility] CHEM PANEL Albumin Lvl 2.7 3.5 - 5.0 05/14/2015 [facility] CHEM PANEL Globulin 5.3 2.0 - 4.0 05/14/2015 [facility] HEMATOLOGY RBC 4.65 4.20 - 5.40 05/14/2015 [facility] HEMATOLOGY Hgb 14.2 12.0 - 16.0 05/14/2015 [facility] HEMATOLOGY Hct 42.4 36.0 - 48.0 05/14/2015 [facility] HEMATOLOGY MCV 91.1 80.0 - 98.0 05/14/2015 [facility] HEMATOLOGY MCH 30.6 27.0 - 31.0 05/14/2015 [facility] HEMATOLOGY MCHC 33.6 32.0 - 36.0 05/14/2015 [facility] HEMATOLOGY RDW 12.8 11.5 - 14.5 05/14/2015 [facility] HEMATOLOGY Platelet 215 133 - 450 05/14/2015 [facility] HEMATOLOGY MPV 9.7 7.4 - 10.4 05/14/2015 [facility] HEMATOLOGY WBC 10.5 3.7 - 10.4 05/14/2015 [facility] HEMATOLOGY INR 1.10 0.85 - 1.17 05/14/2015 [facility] HEMATOLOGY PTT 29.4 22.9 - 35.8 05/14/2015 [facility] HEMATOLOGY PT 14.5 12.0 - 14.7 05/14/2015 [facility] HEMATOLOGY Segs 72.3 45.0 - 75.0 05/14/2015 [facility] HEMATOLOGY Lymphocytes 18.5 20.0 - 40.0 05/14/2015 [facility] HEMATOLOGY Monocytes 8.5 2.0 - 12.0 05/14/2015 [facility] HEMATOLOGY Basophils 0.6 0.0 - 1.0 05/14/2015 [facility] HEMATOLOGY Segs-Bands # 7.6 1.5 - 8.1 05/14/2015 [facility] Lymphocytes # 1.9 1.0 - 5.5 05/14/2015 [facility] Monocytes # 0.9 0.0 - 0.8 05/14/2015 [facility] Basophils # 0.1 0.0 - 0.2 05/14/2015 [facility] HEMATOLOGY Eosinophils 0.1 0.0 - 4.0 05/14/2015 [facility] Pathology Reports No Data Provided for This Section Diagnostic Reports Report Value Date Source Spine lumbar series DX Exam: Spine lumbar series DX Reason for Exam: - lumbar radiculopathy Comparison Exam: None Discussion: 5 non rib-bearing lumbar vertebral bodies are seen. Vertebral body heights are maintained. No spondylolisthesis or scoliosis. Advanced degenerative changes seen at the L4/L5 level. Facet joint arthropathy seen within the lower lumbar spine. No suspicious osteoblastic or osteolytic lesions. Note that a lumbar spine x-ray cannot rule out ligamentous injuries or spinal cord abnormalities. No dilated loops of bowel within the visualized portions of the abdomen and pelvis. Impression: 1. Advanced degenerative changes seen at the L4/L5 level. Facet joint arthropathy seen within the lower lumbar spine. 07/19/2018 LEONEL Loza Spine cervical series DX Exam: Spine cervical series DX Reason for Exam: Back pain. Neck pain. Comparison Exam: X-ray cervical spine 04/20/2012 Discussion: On lateral view, the cervical spine is seen from the C1 vertebral body level down through the C6/C7. Vertebral Vertebral body heights are maintained. No spondylolisthesis. Moderate degenerative changes seen within the mid and lower cervical spine. No suspicious osteoblastic or osteolytic lesions. Prevertebral soft tissue is within normal limits. On oblique views, the suggestion of neural foraminal encroachment within the lower cervical spine. Lateral masses of C1 and dens of C2 appear intact. Please note that a cervical spine x-ray cannot rule out ligamentous injuries or spinal cord abnormalities. Visualized portions of the lung apices are unremarkable. Impression: 1. Moderate degenerative changes seen within the mid and lower cervical spine. 07/19/2018 LEONEL Loza Chest 2 views DX HISTORY: - Z00.00 Encounter for general adult medical examination without abnormal findings TECHNIQUE: PA and lateral views of the chest. COMPARISON: Study dated 05/13/2015. FINDINGS: The lungs are well-inflated and clear. The cardiomediastinal silhouette and pulmonary vasculature are within normal limits. IMPRESSION: No radiographic evidence of acute cardiopulmonary disease. [id number] 06/27/2018 LEONEL Loza Abdomen RUQ US PROCEDURE: Abdomen RUQ US CLINICAL INFORMATION Generalized Acute abdominal pain COMPARISON: None. TECHNIQUE: Grayscale and limited color sonographic evaluation of the right upper quadrant of the abdomen and gallbladder region was performed with standard technique. FINDINGS: LIVER: The visualized liver shows normal contour, size, and morphology. There is normal parenchymal echo texture. BILE DUCTS: The intrahepatic and extrahepatic bile ducts are not dilated with the common bile duct measuring 3 mm. The distal common bile duct is not well seen. GALLBLADDER: Gallbladder sludge with possible gallbladder neck stone. PANCREAS: The pancreas is obscured by bowel gas. KIDNEY: The right kidney measures 13.2 x 5.2 x 5.9 cm in length. The right renal cortical thickness measures 1.6 cm. There is normal renal contour and morphology, with normal parenchymal echotexture. Question minimal prominence of the right renal collecting system. ASCITES: There is no right upper quadrant abdominal ascites. IMPRESSION: 1. Possible cholelithiasis with sludge. 2. Question minimal prominence of the right renal collecting system. SL: 13 07/12/2015 [facility] Chest 1view DX Portable one view AP chest, May 13, 2015 09:56:39 PM CLINICAL HISTORY: Cough and fever ; See Clinic Indication TECHNIQUE: Routine AP view of the chest was obtained. COMPARISON: April 2012 FINDINGS: Lungs demonstrate right medial basilar a airspace opacity likely in the right lower lobe. No pleural effusion or radiographically detectable pneumothorax is present. Cardiomediastinal silhouette is normal. Bones are normal. IMPRESSION: Probable right lower lobe basilar medial or posterior segmental early pneumonia. SL: 14 05/13/2015 [facility] Consultation Notes No Data Provided for This Section Discharge Summaries No Data Provided for This Section History and Physicals No Data Provided for This Section Vital Signs Vital Sign Value Date Comments Source Respitory Rate 16 07/14/2015 [facility] Systolic (mm Hg) 103 07/14/2015 [facility] Diastolic (mm Hg) 65 07/14/2015 [facility] Heart Rate 65 07/14/2015 [facility] Temperature Oral (F) 98.4 F 07/14/2015 [facility] Temperature Oral (F) 97 F 07/14/2015 [facility] Systolic (mm Hg) 106 07/14/2015 [facility] Diastolic (mm Hg) 68 07/14/2015 [facility] Respitory Rate 16 07/14/2015 [facility] Heart Rate 67 07/14/2015 [facility] Heart Rate 71 07/14/2015 [facility] Temperature Oral (F) 98.7 F 07/14/2015 [facility] Respitory Rate 16 07/14/2015 [facility] Systolic (mm Hg) 116 07/14/2015 [facility] Diastolic (mm Hg) 71 07/14/2015 [facility] Weight 93.438 07/13/2015 [facility] Weight 88.636 07/13/2015 [facility] BMI Calculated 31.54 07/13/2015 [facility] Height 167.64 cm 07/13/2015 [facility] Weight 88.636 07/12/2015 [facility] BMI Calculated 32.52 07/12/2015 [facility] Height 165.1 cm 07/12/2015 [facility] Height 165.1 cm 07/12/2015 [facility] BMI Calculated 32.52 07/12/2015 [facility] Heart Rate 78 05/15/2015 [facility] Temperature Oral (F) 98.8 F 05/15/2015 [facility] Respitory Rate 17 05/15/2015 [facility] Systolic (mm Hg) 128 05/15/2015 [facility] Diastolic (mm Hg) 77 05/15/2015 [facility] Respitory Rate 15 05/15/2015 [facility] Systolic (mm Hg) 123 05/15/2015 [facility] Diastolic (mm Hg) 73 05/15/2015 [facility] Heart Rate 76 05/15/2015 [facility] Temperature Oral (F) 98.3 F 05/15/2015 [facility] Heart Rate 75 05/15/2015 [facility] Temperature Oral (F) 98.2 F 05/15/2015 [facility] Systolic (mm Hg) 115 05/15/2015 [facility] Diastolic (mm Hg) 78 05/15/2015 [facility] Respitory Rate 15 05/15/2015 [facility] Height 167.64 cm 05/14/2015 [facility] BMI Calculated 33.36 05/14/2015 [facility] Weight 93.75 05/14/2015 [facility] BMI Calculated 33.68 05/14/2015 [facility] Weight 91.818 05/14/2015 [facility] Height 165.1 cm 05/14/2015 [facility] Weight 93.182 04/20/2012 [facility] Height 165.10 cm 04/20/2012 [facility] Encounters Location Location Details Encounter Type Encounter Number Reason For Visit Attending Provider ADM Date DC Date Status Source [facility] Emergency [id number] CHRISTIE CITLALY 04/20/2012 04/20/2012 Discharged [facility] Inpatient [id number] Yessenia Wei 05/14/2015 05/15/2015 [facility] OBS Observation Patient [id number] [place] Kovacs 07/12/2015 07/14/2015 [facility] [place] [facility] [id number] Juno Lombardi 06/27/2018 06/28/2018 [facility] [place] [facility] [place] [facility] [id number] [place] 07/19/2018 07/20/2018 [facility] [place] Procedures Procedure Code Date Perfomer Comments Source Laminectomy [id number] [facility] [place] Partial hysterectomy [id number] [facility] [place] Assessment and Plan Assessment and Plan Date Source Extracted from:Title: Clinical Document Author: Ilya Rivera MD Date: 07/14/15 Surgery Progress Note Attending: [place] Kovacs DO Service: Emergency Medicine Service Code status: Full Code [Ordered] Reason for Admission: AC INTRACTABLE EPIGASTRIC AND RUQ PAIN, CHOLELITHIASIS Working DRG: None Documented Isolation: None Documented Consulting Physicians: Ilya Rivera MD Office: MSO: [id number] Service: General Surgery [place] Kovacs DO Office: MSO: [id number] Service: Medicine SUBJECTIVE: Doing well. Minimal pain described as soreness around the umbilicus. No fevers or chills. Tolerating a diet. OBJECTIVE and EXAM: General: AAOx3 HEENT: AT, NC, PERRLA, [...] patient and she understands. Vitals and Temp: Vitals Tmp(F) Pulse BP RR SpO2 FIO2 07/14 07:49 98.4 65 103/65 16 96 --- 07/14 04:00 97 67 106/68 16 96 --- 07/14 00:47 98.7 71 116/71 16 96 --- 07/13 20:20 98.7 77 128/66 16 99 --- 07/13 18:51 97.8 79 94/62 18 91 --- 24 Hr Tmax: 98.8F (37.11c) at 07/13 11:01 Vital Signs are the last 5 in the past 48 hours. Labs (Last four charted values) WBC 7.7 (JUL 13) H 11.7 (JUL 12) Hgb 13.0 (JUL 13) 15.9 (JUL 12) Hct 39.6 (JUL 13) H 48.5 (JUL 12) Plt 173 (JUL 13) 221 (JUL 12) Na 135 (JUL 13) L 130 (JUL 12) K 3.6 (JUL 13) 4.2 (JUL 12) CO2 24 (JUL 13) L 18 (JUL 12) Cl 103 (JUL 13) 97 (JUL 12) Cr 0.53 (JUL 13) 0.90 (JUL 12) BUN 9 (JUL 13) 12 (JUL 12) Glucose Random H 261 (JUL 13) H 371 (JUL 12) Ca L 8.4 (JUL 13) 9.1 (JUL 12) PTT 31.2 (JUL 13) Troponin <0.02 (JUL 12) Scheduled Meds (4): 07/13/15 acetaminophen (Ofirmev) 1,000 mg IV Q6H 400 ml/hr 07/13/15 docusate (docusate sodium 100 mg oral capsule) 100 mg PO BID 07/12/15 enoxaparin 40 mg [id number] [id number] 07/12/15 metoclopramide (Reglan 5 mg oral tablet) 5 mg PO QID-Before Meals Extracted from:Title: Clinical Document Author: Ilya Rivera MD Date: [...] INDICATIONS: A 50-year-old lady that presented to [facility] with abdominal pain. At this time, the [...] was closed using 0 Vicryl in a [id number] manner, and the skin was closed using 4-0 Monocryl in running subcuticular manner. The skin and three 5-mm ports were closed using 4-0 Monocryl in simple U-stitch manner. The patient was extubated in the operating room and transferred to recovery in stable condition. All instrument and laparotomy counts were correct. 07/14/2015 [facility] Extracted from:Title: Clinical Document Author: Yessenia Carvajal MD Date: 05/14/15 Chart reveiwed. Patient seen and examined. WIll continue to follow. Clinically stable. Add Long acting insulin. Replace magnesium IV. Continue abx and we will continue to follow. Extracted from:Title: History and Physical Author: Calvin Glass MD Date: 05/14/15 H&P [facility] Completed: May, 02:00 by Calvin Glass MD RM: ED01 - 06, SE AYDEN MARQUEZ 50y (: 1965) F Attending: Yessenia Carvajal MD Service: Internal Medicine Reason for Admission: DIABETIC KETOSIS, ACUTE HYPERGLYCEMIA, AC DEHYDRATION Working DRG: None Documented Code status: None Specified=FULL CODE Current diet: Isolation: None Documented Allergies: NKDA SUBJECTIVE: fever, cough, thirsty 50 year old with diabetes mellitus type II, follows at [facility]. She went there this evening and [...] intact Labs and diagnostic studies reviewed ASSESSMENT and EXAM 50 year old with 1. Uncontrolled diabetes mellitus, acidosis with ketosis seems to be responding to fluids and first course of treatment 2. Acute RLL Community Acquired Pneumoniae 3. Hypokalemia PLAN and TREATMENT 1. The patient is placed in [...] necessary (Yes/No): 24hr Labs 05/14 0107 Glucose Lvl 306 H BUN 6 L Creatinine Lvl 0.67 Sodium Lvl 133 L Potassium Lvl 3.0 C Chloride Lvl 103 CO2 17 L AGAP 16.0 Calcium Lvl 7.8 L eGFR 104 05/13 2340 Site Marlon R AC Temp Marlon 37.0 pH Marlon 7.31 pCO2 Marlon 34 L pO2 Marlon 26 HCO3 Marlon 17 L BE Marlon -8 L O2 Sat Marlon 40.8 Allens Marlon Positive Mode Marlon Rm Air 05/13 2309 Glucose POC 405 C 05/13 2218 UA Color Ltyellow UA Turbidity Marked UA Spec Grav 1.029 UA pH 6.0 UA Protein Negative UA Glucose 500 UA Ketones 80 UA Bili Negative UA Blood Small UA Urobilinogen 2.0 H UA Nitrite Negative UA Leuk Est Moderate UA RBC 6 H UA WBC 8 H UA Bacteria Occasional UA Sq Epi Many 05/13 2140 Influ A Negative Influ B Negative 05/13 2137 Lactic Acid Lvl 1.9 Total CK 37 Troponin-I <0.02 CK MB <0.5 Ketone Quantitative 3.18 H CK MB Index <1.4 Sodium Lvl 126 L Potassium Lvl 3.6 Chloride Lvl 93 L CO2 18 L AGAP 18.6 Glucose Lvl 461 C Creatinine Lvl 0.94 BUN 6 L B/C Ratio 6 Total Protein 8.0 Albumin Lvl 2.7 L Globulin 5.3 H A/G Ratio 0.5 L Calcium Lvl 8.5 ALT 23 AST 29 Alk Phos 123 Bili Total 0.7 eGFR 72 WBC 10.5 H RBC 4.65 Hgb 14.2 Hct 42.4 MCV 91.1 MCH 30.6 MCHC 33.6 RDW 12.8 Platelet 215 MPV 9.7 Segs 72.3 Monocytes 8.5 Lymphocytes 18.5 L Eosinophils 0.1 Basophils 0.6 Segs-Bands # 7.6 Lymphocytes # 1.9 Monocytes # 0.9 H Basophils # 0.1 PT 14.5 INR 1.10 PTT 29.4 05/13 2119 Glucose POC 493 C Vitals Tmp(F) Pulse BP RR SpO2 FIO2 05/13 22:07 98.6 98 112/78 17 97 --- 05/13 21:18 99.0 109 143/85 18 96 --- 24 Hr Tmax: 99.0F (37.22c) at 05/13 21:18 Vital Signs are the last 5 in the past 48 hours. Date Wt(kg) Wt(lb) Ht(cm) Ht(in) Method 12/03 (initial) 91.82 202.00 Estimated 05/13 165.10 65.00 Stated I&O Record In Out Bal 05/13 24hr Tot 1999 0 05/12 24hr Tot 0 0 0 Medications (14) Active [...] 40 mEq PO ONCE Continuous Infusions: None 05/15/2015 [facility] Plan of Care No Data Provided for This Section Social History Social History Date Source Social History TypeResponse Alcohol Current, Type Wine. Frequency: 1-2 times per month. Previous treatment: None. Smoking Status Never smoker; Exposure to Tobacco Smoke None; Cigarette Smoking Last 365 Days No; Reg Smoking Cessation Counseling No 05/14/2015 [facility] Social History TypeResponse Alcohol Current, Type Wine. Frequency: 1-2 times per month. Previous treatment: None. Smoking Status Never smoker; Exposure to Tobacco Smoke None; Cigarette Smoking Last 365 Days No; Reg Smoking Cessation Counseling No entered on: 07/12/15 05/14/2015 [facility] Family History No Data Provided for This Section Advance Directives No Data Provided for This Section Functional Status No Data Provided for This Section
--- OUTSIDE RECORDS SUMMARY | 2019-02-06 15:26 | XMS REPORT | Summary of Care ---
Author Author [facility] [place] Organization [facility] [place] Address Unknown Phone Unavailable Encounter HQ Hany_dali(FIN) [id number] Date(s): 07/19/18 - 07/19/18 [facility] [place] [address] [phone] Encounter Diagnosis Radiculopathy, cervical region (Final) - 07/24/18 Radiculopathy, lumbar region (Final) - Other intervertebral disc degeneration, lumbar region (Final) - Discharge Disposition: Home or Self Care Attending [...]
[2019-02-06] MEDS ORDERED: MORPHINE SULFATE INJ 4 MG/ML INJ 1ML IV ONE (15:42)
[2019-02-06] MEDS ORDERED: ASPIRIN 81 MG CHEW TAB PO ONE (15:42)
[2019-02-06] MEDS ORDERED: ONDANSETRON HCL INJ 2MG/ML 2ML 2 MG/ML VIAL IV ONE (15:42)
[2019-02-06] MEDS ORDERED: SODIUM CHLORIDE 0.9% 1000ML 1,000 ML IV STA ×2 (15:42)
[2019-02-06] MEDS ORDERED: FAMOTIDINE 20 MG/2 ML VIAL IV ONE (15:42)
[2019-02-06] MEDS ORDERED: KETOROLAC TROMETHAMINE 30 MG/ML VIAL IV ONE (15:42)
[2019-02-06 16:11] LABS: BILIRUBIN,URINE NEGATIVE (NEGATIVE); CLARITY,URINE SL CLOUDY (CLEAR); COLOR,URINE YELLOW (YELLOW); KETONES,URINE NEGATIVE (NEGATIVE); LEUKOCYTE ESTERASE ,URINE SMALL (NEGATIVE); NITRITE,URINE POSITIVE (NEGATIVE); PROTEIN,URINE DIPSTICK TRACE (NEGATIVE); URINE UROBILINOGEN 0.2 mg/dL (0.2 - 1)
[2019-02-06 16:12] LABS: BASOPHILS % 0.5 % (0.0-1.0); EOSINOPHILS # (AUTO) 0.2 (0.0-0.4); EOSINOPHILS % 2.3 % (0.0-6.0); HEMATOCRIT 39.7 % (34.2-44.1); HEMOGLOBIN 14.1 g/dL (12.0-16.0); LYMPHOCYTES # (AUTO) 3.3 (1.0-3.2); MEAN CORPUSCULAR HEMOGLOBIN 30.9 pg (28-32); MEAN CORPUSCULAR HGB CONC 35.5 g/dL (31-35); MEAN CORPUSCULAR VOLUME 86.9 fL (81-99); MONOCYTES # (AUTO) 0.5 (0.2-0.8); MONOCYTES % 7.2 % (4.4-11.3); NEUTROPHILS # (AUTO) 3.3 (2.1-6.9); NEUTROPHILS % 44.6 % (38.7-80.0); PLATELET COUNT 276 x10e3/uL (140-360); RED BLOOD COUNT 4.57 x10e6/uL (3.6-5.1); RED CELL DISTRIBUTION WIDTH 12.4 % (11.7-14.4)
[2019-02-06 16:23] LABS: BACTERIA,URINE MANY /HPF; EPITHELIAL CELLS,URINE FEW /LPF
[2019-02-06 16:25] LABS: INR 0.92; PROTHROMBIN TIME 12.9 seconds (11.9-14.5)
[2019-02-06 16:26] LABS: PARTIAL THROMBOPLASTIN TIME 25.7 seconds (23.8-35.5)
[2019-02-06] MEDS ORDERED: CEFTRIAXONE SOD 1 GM VIAL IV ONE (16:30)
[2019-02-06] MEDS ORDERED: CEFTRIAXONE SOD 1 GM/NS 50 ML 50 ML IV ONE (16:30)
[2019-02-06 16:37] LABS: ALANINE AMINOTRANSFERASE 17 IU/L (0-55); ALBUMIN 3.9 g/dL (3.5-5.0); ALKALINE PHOSPHATASE 117 IU/L (40-150); ANION GAP 15.8 mmol/L (8-16); BLOOD UREA NITROGEN 12 mg/dL (7-26); BUN/CREATININE RATIO 14 (6-25); CALCIUM 10.2 mg/dL (8.4-10.2); CARBON DIOXIDE 23 mmol/L (22-29); CHLORIDE 102 mmol/L (98-107); CREATINE KINASE 66 IU/L (29-168); CREATININE, SERUM 0.86 mg/dL (0.57-1.11); EST GLOMERULAR FILTRATION RATE > 60 ML/MIN (60-); GLUCOSE 215 mg/dL (74-118); LIPASE 15 U/L (8-78); MAGNESIUM 1.5 MG/DL (1.3-2.1); POTASSIUM 3.8 mmol/L (3.5-5.1); SODIUM 137 mmol/L (136-145)
--- NOTE | 2019-02-06 16:45 | Diagnostic Imaging Report ---
Exam: Chest radiograph Clinical History: Chest pain Findings: The cardiomediastinal silhouette and lungs are normal. The regional skeleton and soft tissue are unremarkable. There is no evidence of pleural effusion or pneumothorax. Impression: No radiographic evidence of acute cardiopulmonary disease. Signed by: Dr. Kike Angeles MD on 02/06/2019 4:42 PM
--- NOTE | 2019-02-06 16:54 | Diagnostic Imaging Report ---
Exam: CT abdomen and pelvis Clinical history: Left flank pain Technique: Helical images of the abdomen and pelvis were obtained without contrast DOSE REDUCTION: The exams was performed according to the departmental dose-optimization program which includes automated exposure control, adjustment of the mA and/or kV according to patient size and/or use of iterative reconstruction technique. Findings: The lung bases are clear. There is no evidence of pleural effusion. The cardiac size is within normal limits. The liver, spleen, pancreas, adrenal glands, and kidneys are unremarkable. The gallbladder has been removed. A 1.7 cm hypodense lesion is seen in the left adrenal gland with Hounsfield unit of 9. 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 The small and large bowels are normal in caliber without evidence of obstruction. The appendix is visualized and unremarkable. The bladder is unremarkable. The uterus and ovaries are not seen likely due to prior resection. There is no evidence of lymphadenopathy or free fluid. The aorta and IVC are normal in caliber. Impression: 1. Status post cholecystectomy. 2. No evidence of radiopaque stones in bilateral renal collecting systems. Signed by: Dr. Kike Angeles MD on 02/06/2019 4:51 PM
[2019-02-06 16:56] LABS: THYROID STIMULATING HORMONE 0.924 uIU/mL (0.350-4.940)
[2019-02-06] MEDS ORDERED: LEVOFLOXACIN 500 MG TAB PO ONE (17:30)
== END 2019-02-06 19:30 | disposition home or self-care (01) ==
LOC: ER 15:23
DX: N39.0 Urinary tract infection, site not specified (principal); I10 Essential (primary) hypertension; E11.40 Type 2 diabetes mellitus with diabetic neuropathy, unspecified; Z79.84 Long term (current) use of oral hypoglycemic drugs
CPT/HCPCS: 36415; 71045; 74176; 80053; 81001; 82550; 82553; 83690; 83735; 83880; 84443; 84484; 85025; 85610; 85730; 87086; 87186; 93005; 99284; J0696; J1885; J2270; J2405; J7030

== ENCOUNTER → 2021-12-20 | Day surgery (SDC) | payer OTHER ==
[~2021-12-20] MED LIST changes: +ATORVASTATIN CA20 MG PO; +BENICAR20 MG PO; +BUPIVACAINE 0.25% 30ML SDV ONE; +CELEBREX200 MG PO; +DEXAMETHASONE SOD PHOS INJ 4 MG/ML SDV ONE; +FENTANYL CITRATE/PF 100MCG/2 ML INJ ONE; +FEROSUL325 MG PO; +LEVEMIR100 UNIT/1 SC; +LIDOCAINE HCL 2% LOCAL INJ 5 ML SDV VIAL INJ ONE; +MIDAZOLAM HCL 2 MG/2 ML VIAL ONE; +NEOSTIGMINE 1 MG/ML 10ML VIAL ONE; +OMEPRAZOLE40 MG PO; +ONDANSETRON HCL INJ 2MG/ML 2ML 2 MG/ML VIAL ONE; +OZEMPIC1 MG/0.71 SC; +POVIDONE IODINE 0.05% 0.05 % ML PO ONE; +PROPOFOL IV EMULSION 10 MG/ML 20 ML VIAL ONE; +SEVOFLURANE INHAL SOLN 250 ML PEN BTL ONE
[2021-12-20 11:45] VITALS: BP 132/74
== END | disposition home or self-care (01) ==
LOC: OR 08:03
PROVIDERS: ATTEND Podiatrist Foot & Ankle Surgery
DX: M72.2 Plantar fascial fibromatosis (principal); M77.31 Calcaneal spur, right foot; E11.9 Type 2 diabetes mellitus without complications; K21.9 Gastro-esophageal reflux disease without esophagitis; E66.9 Obesity, unspecified; G62.9 Polyneuropathy, unspecified; E78.5 Hyperlipidemia, unspecified; Z88.6 Allergy status to analgesic agent; Z01.812 Encounter for preprocedural laboratory examination; Z20.822 Contact with and (suspected) exposure to COVID-19; Z79.4 Long term (current) use of insulin; Z79.899 Other long term (current) drug therapy; Z68.37 Body mass index [BMI] 37.0-37.9, adult
CPT/HCPCS: 0223U; 28104; 29893; 36415 ×2; 82948; J0690; J1100; J2001; J2250; J2405; J2704; J3010; Q4150; 76000; J2710

== ENCOUNTER → 2022-04-17 | Day surgery (SDC) | payer OTHER ==
[~2022-04-17] MED LIST changes: -BUPIVACAINE 0.25% 30ML SDV ONE; -DEXAMETHASONE SOD PHOS INJ 4 MG/ML SDV ONE; +GLYCOPYRROLATE INJ 0.2 MG/ML VIAL ONE; +HYOSCYAMINE SULFATE 0.5 MG/ML INJ ONE; -MIDAZOLAM HCL 2 MG/2 ML VIAL ONE; -NEOSTIGMINE 1 MG/ML 10ML VIAL ONE; -ONDANSETRON HCL INJ 2MG/ML 2ML 2 MG/ML VIAL ONE; +PROPOFOL IV EMULSION 50 ML IV ONE; -SEVOFLURANE INHAL SOLN 250 ML PEN BTL ONE
[2022-04-17 13:15] VITALS: BP 115/74
== END | disposition home or self-care (01) ==
LOC: ENDO 09:26
PROVIDERS: ATTEND Internal Medicine Gastroenterology
DX: K20.90 Esophagitis, unspecified without bleeding (principal); K29.60 Other gastritis without bleeding; K44.9 Diaphragmatic hernia without obstruction or gangrene; K29.80 Duodenitis without bleeding; K57.30 Diverticulosis of large intestine without perforation or abscess without bleeding; K64.8 Other hemorrhoids; Z71.3 Dietary counseling and surveillance; I10 Essential (primary) hypertension; E11.9 Type 2 diabetes mellitus without complications; G62.9 Polyneuropathy, unspecified; E66.9 Obesity, unspecified; Z88.8 Allergy status to other drugs, medicaments and biological substances; Z01.810 Encounter for preprocedural cardiovascular examination; Z79.4 Long term (current) use of insulin; Z79.899 Other long term (current) drug therapy; Z68.38 Body mass index [BMI] 38.0-38.9, adult; Z86.16 Personal history of COVID-19; Z80.0 Family history of malignant neoplasm of digestive organs
CPT/HCPCS: 36415; 43239; 43450; 45378; 82948; 93005; C9113; J1980; J2001; J2704 ×2; J3010

== ENCOUNTER 2022-06-24 15:37 | Emergency (ER) | payer OTHER ==
[~2022-06-24] VITALS: Ht 165.1 cm; Wt 95.3 kg
[~2022-06-24 15:37] MED LIST changes: -FENTANYL CITRATE/PF 100MCG/2 ML INJ ONE; -GLYCOPYRROLATE INJ 0.2 MG/ML VIAL ONE; -HYOSCYAMINE SULFATE 0.5 MG/ML INJ ONE; -LIDOCAINE HCL 2% LOCAL INJ 5 ML SDV VIAL INJ ONE; -POVIDONE IODINE 0.05% 0.05 % ML PO ONE; -PROPOFOL IV EMULSION 10 MG/ML 20 ML VIAL ONE; -PROPOFOL IV EMULSION 50 ML IV ONE
[2022-06-24] MEDS ORDERED: KETOROLAC TROMETHAMINE 30 MG/ML VIAL IM STA (15:49)
[2022-06-24] MEDS ORDERED: KETOROLAC TROMETHAMINE 30 MG/ML VIAL ONE (16:08)
[2022-06-24] MEDS ORDERED: NAPROXEN250 MG PO (17:45)
[2022-06-24 17:55] VITALS: BP 122/61
== END 2022-06-24 17:56 | disposition home or self-care (01) ==
LOC: ER 15:43
DX: M79.671 Pain in right foot (principal); M79.89 Other specified soft tissue disorders; E11.40 Type 2 diabetes mellitus with diabetic neuropathy, unspecified; I10 Essential (primary) hypertension
CPT/HCPCS: 73630; 93971; 99283; J1885

== ENCOUNTER 2022-07-20 13:34 | Emergency (ER) | payer OTHER ==
[~2022-07-20] VITALS: Ht 165.1 cm; Wt 95.3 kg
[~2022-07-20 13:34] MED LIST changes: +GLIPIZIDE5 MG PO; +IRBESARTAN150 MG PO; +LEVEMIR SQ; +LYRICA50 MG PO; +NAPROXEN250 MG PO; +STARLIX120 MG PO; +TRICOR145 MG PO; +TRULICITY0.75 MG/0. INJ; +VOLTAREN-XR100 MG PO
[2022-07-20] MEDS ORDERED: HYDROCODONE/APAP 10MG-325MG TAB PO ONE (14:00)
[2022-07-20] MEDS ORDERED: HYDROCODON-ACE1 EA11 PO (14:06)
== END 2022-07-20 14:24 | disposition home or self-care (01) ==
LOC: ER 13:50
DX: M79.671 Pain in right foot (principal); M25.474 Effusion, right foot; I10 Essential (primary) hypertension; E11.40 Type 2 diabetes mellitus with diabetic neuropathy, unspecified
CPT/HCPCS: 99282

== ENCOUNTER 2024-10-09 18:12 | Observation (INO) | payer OTHER ==
[~2024-10-09] VITALS: Ht 165.1 cm; Wt 94.8 kg
[~2024-10-09 18:12] MED LIST changes: +HYDROCODON-ACE1 EA11 PO
[2024-10-09 18:22] VITALS: TEMP 98.7
[2024-10-09 18:31] LABS: BASOPHILS # (AUTO) 0.1 (0.0-0.1); BASOPHILS % 0.6 % (0.0-1.0); EOSINOPHILS # (AUTO) 0.1 (0.0-0.4); EOSINOPHILS % 1.3 % (0.0-6.0); LYMPHOCYTES # (AUTO) 1.4 (1.0-3.2); LYMPHOCYTES % 13.6 % (18.0-39.1); MEAN CORPUSCULAR HEMOGLOBIN 29.3 pg (28-32); MEAN CORPUSCULAR HGB CONC 34.3 g/dL (31-35); MEAN CORPUSCULAR VOLUME 85.4 fL (81-99); MONOCYTES # (AUTO) 0.5 (0.2-0.8); MONOCYTES % 4.6 % (4.4-11.3); NEUTROPHILS # (AUTO) 8.1 (2.1-6.9); PLATELET COUNT 216 x10e3/uL (140-360); RED CELL DISTRIBUTION WIDTH 12.6 % (11.7-14.4)
[2024-10-09 18:39] LABS: BILIRUBIN,URINE SMALL (NEGATIVE); CLARITY,URINE HAZY (CLEAR); COLOR,URINE YELLOW (YELLOW); GLUCOSE, URINE 500 (NEGATIVE); KETONES,URINE NEGATIVE (NEGATIVE); LEUKOCYTE ESTERASE ,URINE SMALL (NEGATIVE); NITRITE,URINE NEGATIVE (NEGATIVE); PH,URINE 5.5 (5 - 7); PROTEIN,URINE DIPSTICK TRACE (NEGATIVE); URINE UROBILINOGEN 0.2 mg/dL (0.2 - 1)
[2024-10-09] MEDS: ASPIRIN 81 MG CHEW TAB PO ONE (18:43)
[2024-10-09 18:51] LABS: AMORPHOUS SEDIMENT,URINE MODERATE; BACTERIA,URINE MANY /HPF; EPITHELIAL CELLS,URINE MODERATE /LPF; WBC,URINE (MAN) 21-50 /HPF (0-5)
[2024-10-09] MEDS: MAGNESIUM/ALUMINUM/SIMETHICONE 30 ML UDC PO STA (18:51)
[2024-10-09] MEDS: BELLADONNA ALK/PHENOBARBITAL 5 ML UDC PO ONE (18:51)
[2024-10-09] MEDS: LIDOCAINE VISC 2% SOLN 15 ML UDC PO STA (18:52)
[2024-10-09 18:53] LABS: ALBUMIN 2.8 g/dL (3.5-5.0); ALBUMIN/GLOBULIN RATIO 0.7 (0.8-2.0); ANION GAP 18.8 mmol/L (8-16); BILIRUBIN,TOTAL 0.4 mg/dL (0.2-1.2); CALCIUM 8.8 mg/dL (8.4-10.2); CREATININE, SERUM 1.63 mg/dL (0.57-1.11); POTASSIUM 3.8 mmol/L (3.5-5.1); TOTAL PROTEIN 7.1 g/dL (6.5-8.1)
[2024-10-09 18:58] LABS: TROPONIN I 0.001 ng/mL (0-0.300)
[2024-10-09] MEDS ORDERED: IOPAMIDOL 370 MG/ML 100 ML INFUS..BTL INJ ONE (19:40)
[2024-10-09] MEDS: SODIUM CHLORIDE 0.9% 1000ML 1,000 ML IV STA (20:29)
[2024-10-09] MEDS: INSULIN REGULAR, HUMAN 100 UNIT/1 ML IV STA (20:42)
[2024-10-09 22:50] VITALS: PULSE 97; RESP 16
[2024-10-09 23:00] VITALS: BP 127/70; O2SAT 99
[2024-10-09 23:19] VITALS: PULSE 95; RESP 18; O2SAT 98
[2024-10-10] VITALS (7 sets, daily range): BP systolic 100–119; BP diastolic 53–88; PULSE 82–99; RESP 18–19; TEMP 98.1–99.1; O2SAT 96–100
[2024-10-10] MEDS: Morphine 4mg INJECTION 4 MG/ML INJ IV PRN (01:03)
[2024-10-10 05:40] LABS: BASOPHILS # (AUTO) 0.1 (0.0-0.1); BASOPHILS % 0.4 % (0.0-1.0); EOSINOPHILS # (AUTO) 0.1 (0.0-0.4); HEMATOCRIT 32.7 % (34.2-44.1); HEMOGLOBIN 11.1 g/dL (12.0-16.0); LYMPHOCYTES # (AUTO) 1.8 (1.0-3.2); LYMPHOCYTES % 15.1 % (18.0-39.1); MEAN CORPUSCULAR HEMOGLOBIN 29.6 pg (28-32); MEAN CORPUSCULAR HGB CONC 33.9 g/dL (31-35); MEAN CORPUSCULAR VOLUME 87.2 fL (81-99); MONOCYTES # (AUTO) 0.8 (0.2-0.8); NEUTROPHILS # (AUTO) 8.9 (2.1-6.9); NEUTROPHILS % 73.6 % (38.7-80.0); PLATELET COUNT 185 x10e3/uL (140-360); RED BLOOD COUNT 3.75 x10e6/uL (3.6-5.1); RED CELL DISTRIBUTION WIDTH 12.6 % (11.7-14.4); WHITE BLOOD COUNT 12.08 x10e3/uL (4.8-10.8)
[2024-10-10 06:19] LABS: ALBUMIN 2.5 g/dL (3.5-5.0); ALBUMIN/GLOBULIN RATIO 0.6 (0.8-2.0); ANION GAP 17.7 mmol/L (8-16); BILIRUBIN,TOTAL 0.5 mg/dL (0.2-1.2); CALCIUM 8.6 mg/dL (8.4-10.2); CREATININE, SERUM 0.96 mg/dL (0.57-1.11); POTASSIUM 3.7 mmol/L (3.5-5.1); TOTAL PROTEIN 6.4 g/dL (6.5-8.1)
[2024-10-10 06:46] LABS: TROPONIN I 0.005 ng/mL (0-0.300)
[2024-10-10] MEDS: ONDANSETRON HCL INJ 2MG/ML 2ML 2 MG/ML VIAL IV PRN (09:42)
[2024-10-10] MEDS ORDERED: NEURONTIN100 MG PO (11:06)
[2024-10-10] MEDS ORDERED: SEMGLEE (Y100 UNIT/2 SC (11:08)
[2024-10-10] MEDS ORDERED: MACROBID 100 M100 MG PO (11:10)
[2024-10-10] MEDS ORDERED: DEXTROSE 50% SYRINGE 50 ML IV PRN (12:15)
[2024-10-10] MEDS: INSULIN REGULAR, HUMAN 100 UNIT/1 ML SQ SCH (12:52)
[2024-10-10] MEDS: INSULIN GLARGINE 100 UNITS/ML VIAL SQ ONE (12:53)
[2024-10-10 15:30] LABS: CREATINE KINASE 15 IU/L (29-168)
[2024-10-10 15:39] LABS: TROPONIN I < 0.001 ng/mL (0-0.300)
[2024-10-16 06:26] LABS: ABG PH 7.38 (7.35-7.45)
== END 2024-10-10 17:45 | disposition home or self-care (01) ==
LOC: ER 18:18 → ERHOLD 21:07 → MED/SURG2 22:50
PROVIDERS: ADMIT Internal Medicine; ATTEND Internal Medicine
DX: R07.89 Other chest pain (principal); E11.65 Type 2 diabetes mellitus with hyperglycemia; E11.42 Type 2 diabetes mellitus with diabetic polyneuropathy; N39.0 Urinary tract infection, site not specified; F41.9 Anxiety disorder, unspecified; Z79.4 Long term (current) use of insulin; Z79.84 Long term (current) use of oral hypoglycemic drugs
CPT/HCPCS: 36415 ×2; 71045; 71260; 80053 ×2; 81001; 82550 ×2; 82805; 82948 ×2; 83690; 83880; 84484 ×2; 85025 ×2; 85379; 93005; 93306; 94799 ×2; 99284; G0378 ×2; J1815; J2270; J2405; J7030; Q9967